=== PATIENT | female | born 1940 | race African-American/Black ===

== ENCOUNTER → 2016-09-13 | Outpatient (CLI) | payer MEDICARE | LOC: RAD 09:58 | PROVIDERS: ATTEND Internal Medicine | DX: M54.12 Radiculopathy, cervical region (principal) | CPT/HCPCS: 72141 ==

== ENCOUNTER → 2016-11-23 | Outpatient (CLI) | payer MEDICARE | LOC: WI 07:47 | PROVIDERS: ATTEND Specialist | DX: M79.604 Pain in right leg (principal); M25.551 Pain in right hip; M81.0 Age-related osteoporosis without current pathological fracture | CPT/HCPCS: 77080 ==

== ENCOUNTER → 2017-03-07 | Outpatient (CLI) | payer MEDICARE ==
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
== END ==
LOC: RAD 10:22
PROVIDERS: ATTEND Pain Medicine Interventional Pain Medicine
DX: M79.672 Pain in left foot (principal)
CPT/HCPCS: 78315; A9561; Q9969

== ENCOUNTER 2018-01-24 20:35 | Emergency (ER) | payer MEDICARE ==
[2018-01-24] MEDS ORDERED: HYDROCODONE/ACETAMINOPHEN 5-325 MG TABLET PO ONE (21:08)
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
--- NOTE | 2018-01-24 21:57 | RADIOLOGY REPORT (SQ) ---
EXAM DESCRIPTION: CT CHEST WITHOUT COMPLETED DATE/TIME: 01/24/2018 9:42 pm REASON FOR STUDY: fall with midback and R posterolater rib cage pain COMPARISON: 10/10/2015 TECHNIQUE: CT scan performed of the chest without intravenous contrast. Images reviewed with lung, soft tissue and bone windows. Reconstructed coronal and sagittal MPR images reviewed. All images st ored on PACS. All CT scanners at this facility use dose modulation, iterative reconstruction, and/or weight based d osing when appropriate to reduce radiation dose to as low as reasonably achievable (ALARA). [facility]: Dose Right [facility]: CareDose [facility]: Dose Right [facility]: Teradose 4D [facility]: [email or web address] RADIATION DOSE: CT Rad equipment meets quality standard of care and radiation dose reduction techniq ues were employed. CTDIvol: 14.4 mGy. DLP: 577 mGy-cm. mGy. LIMITATIONS: No technical limitations. FINDINGS: LUNGS AND PLEURA: No pneumothorax. Similar basilar parenchymal scarring -nodularity. No pleural effusions, calcifications. HILAR AND MEDIASTINAL STRUCTURES: No identified masses or abnormal nodes. No obvious aneurysm. HEART AND VASCULAR STRUCTURES: No aneurysm. Moderate pericardial effusion. UPPER ABDOMEN: No significant findings. Limited exam. THYROID AND OTHER SOFT TISSUES: Similar nodularity and postsurgical changes. . BONES: No acute finding. HARDWARE: None in the chest. OTHER: No other significant findings. IMPRESSION: Moderate pericardial effusion. No evidence for acute injury. TECHNICAL DOCUMENTATION: JOB ID: [id number] [place]-72 Quality ID # 436: Final reports with documentation of one or more dose reduction techniques (e.g., Au tomated exposure control, adjustment of the mA and/or kV according to patient size, use of iterative reconstruction technique) 2010 [employer]- All Rights Reserved Reading location - IP/workstation name: [email or web address]
--- NOTE | 2018-01-24 22:05 | RADIOLOGY REPORT (SQ) ---
EXAM DESCRIPTION: L SPINE WHOLE COMPLETED DATE/TIME: 01/24/2018 9:55 pm REASON FOR STUDY: fall with lower back pain COMPARISON: None. NUMBER OF VIEWS: Five views including obliques. TECHNIQUE: AP, lateral, oblique, and sacral radiographic images acquired of the lumbar spine. LIMITATIONS: None. FINDINGS: MINERALIZATION: Normal. SEGMENTATION: Normal. No transitional anatomy. ALIGNMENT: Normal. VERTEBRAE: Maintained height. No fracture or worrisome bone lesion. DISCS: Multilevel disc space narrowing with osteophytes. POSTERIOR ELEMENTS: Pedicles and facets are intact. No pars defect or posterior arch defects. Facet arthropathy is present. HARDWARE: None in the spine. PARASPINAL SOFT TISSUES: Normal. PELVIS: Intact as visualized. No fractures or worrisome bone lesions. SI joints intact. OTHER: No other significant finding. IMPRESSION: SPONDYLOSIS WITHOUT BONE LESION OR FRACTURE. TECHNICAL DOCUMENTATION: JOB ID: [id number] [place]-72 2010 [employer]- All Rights Reserved Reading location - IP/workstation name: [email or web address]
[2018-01-24] MEDS ORDERED: HYDROCODONE/ACETAMINOPHEN 5-325 MG (6 TAB/ER DISP) PO PRN (23:14)
[2018-01-25 00:19] VITALS: BP 175/94
== END 2018-01-25 | disposition home or self-care (01) ==
LOC: ER 20:35
DX: I31.3 Pericardial effusion (noninflammatory) (principal); S09.90XA Unspecified injury of head, initial encounter; S16.1XXA Strain of muscle, fascia and tendon at neck level, initial encounter; S39.012A Strain of muscle, fascia and tendon of lower back, initial encounter; M54.2 Cervicalgia; M54.9 Dorsalgia, unspecified; R51 Headache; Y04.8XXA Assault by other bodily force, initial encounter; I10 Essential (primary) hypertension; Z79.899 Other long term (current) drug therapy
CPT/HCPCS: 99284; 72110; 70450; 71250; 72125; A9270 ×2

== ENCOUNTER → 2018-02-17 | Outpatient (CLI) | payer MEDICARE ==
[2018-02-17 18:37] LABS: ALANINE AMINOTRANSFERASE 19 U/L (9-52); ALBUMIN 3.7 g/dL (3.5-5.0); ALKALINE PHOSPHATASE 96 U/L (38-126); ANION GAP 13 (5-19); ASPARTATE AMINO TRANSFERASE 22 U/L (14-36); BILIRUBIN,DIRECT 0.4 mg/dL (0.0-0.4); BILIRUBIN,TOTAL 0.6 mg/dL (0.2-1.3); BLOOD UREA NITROGEN 15 mg/dL (7-20); CALCIUM 9.6 mg/dL (8.4-10.2); CARBON DIOXIDE 31 mmol/L (22-30); CHLORIDE 103 mmol/L (98-107); GLUCOSE 100 mg/dL (75-110); POTASSIUM 3.4 mmol/L (3.6-5.0); SODIUM 146.5 mmol/L (137-145); TOTAL PROTEIN 7.3 g/dL (6.3-8.2)
== END ==
LOC: OD 17:28
PROVIDERS: ATTEND Internal Medicine Cardiovascular Disease
DX: E03.9 Hypothyroidism, unspecified (principal); I10 Essential (primary) hypertension; R53.83 Other fatigue; R06.02 Shortness of breath
CPT/HCPCS: 36415; 80053; 84443

== ENCOUNTER 2018-03-02 21:21 | Inpatient (IN) | payer MEDICARE ==
[2018-03-02] MEDS ORDERED: AMLODIPINE BESYLATE 5 MG TABLET PO ONE (22:09)
[2018-03-02] MEDS ORDERED: BENAZEPRIL HCL 10 MG TABLET PO ONE (22:09)
--- NOTE | 2018-03-02 22:12 | ER Document Report ---
ED General - General Chief Complaint: Shortness Of Breath Stated Complaint: DIFFICULTY BREATHING TRAVEL OUTSIDE OF THE [place] IN LAST 30 DAYS: No - HPI Notes: Patient is a 78-year-old female with a history of hypertension, CHF, obesity, A. fib who presents to the ED complaining of shortness of breath 4 days. Patient states her symptoms are worse when she lays flat and on occasion when she is ambulated. Patient states that she was seen this last week and was started on metoprolol as well as Eliquis. Patient states that she did not take her blood pressure medication this evening. She has not had any development of chest pain. She is eating and drinking without any difficulties. She is urinating normally and having normal bowel movements. Denies any drug allergies. Denies any headache, fever, neck pain, changes in vision/speech/ mentation/hearing, URI, sore throat, chest pain, palpitations, syncope, cough, abdominal pain, nausea/vomiting/diarrhea, urinary retention, dysuria, hematuria , back pain, loss of control of bowel or bladder, numbness/tingling, or rash. - Related Data Allergies/Adverse Reactions: No Known Allergies Allergy (Verified 09/29/14 08:13) Past Medical History - Social History Smoking Status: Never Smoker Chew tobacco use (# tins/day): No Frequency of alcohol use: None Drug Abuse: None Family History: Reviewed & Not Pertinent Patient has suicidal ideation: No Patient has homicidal ideation: No - Past Medical History Cardiac Medical History: Reports: Hx Congestive Heart Failure, Hx Hypercholesterolemia, Hx Hypertension - on meds Denies: Hx Atrial Fibrillation, Hx Coronary Artery Disease, Hx Heart Attack, Hx Peripheral Vascular Disease, Hx Heart Murmur Pulmonary Medical History: Denies: Hx Asthma, Hx Bronchitis, Hx COPD, Hx Pneumonia, Hx Tuberculosis Neurological Medical History: Denies: Hx Cerebrovascular Accident, Hx Seizures Endocrine Medical History: Reports: Hx Hyperthyroidism. Denies: Hx Graves' Disease Renal/ Medical History: Denies: Hx Peritoneal Dialysis GI Medical History: Denies: Hx Hepatitis, Hx Hiatal Hernia, Hx Ulcer Musculoskeltal Medical History: Reports Hx Arthritis - knees & ankles, Denies Hx Fibromyalgia, Denies Hx Muscular Dystrophy Traumatic Medical History: Denies: Hx Fractures Infectious Medical History: Denies: Hx Hepatitis Past Surgical History: Reports: Hx Mastectomy - double 2016, Hx Thyroid Surgery - removal of one, Hx Tubal Ligation. Denies: Hx Appendectomy, Hx Bowel Surgery , Hx Section, Hx Coronary Artery Bypass Graft, Hx Gastric Bypass Surgery, Hx Herniorrhaphy, Hx Hysterectomy, Hx Open Heart Surgery, Hx Pacemaker , Hx Tonsillectomy - Immunizations Hx Diphtheria, Pertussis, Tetanus Vaccination: Yes Review of Systems - Review of Systems -: Yes All other systems reviewed and negative Physical Exam - Vital signs Vitals: Temp Pulse Resp BP Pulse Ox 99.0 F 77 24 H 184/82 H 92 03/02/18 21:28 03/02/18 21:28 03/02/18 21:28 03/02/18 21:28 03/02/18 21:28 - Notes Notes: PHYSICAL EXAMINATION: GENERAL: Well-appearing, well-nourished and in no acute distress. Obese. HEAD: Atraumatic, normocephalic. EYES: Pupils equal round and reactive to light, extraocular movements intact, sclera anicteric, conjunctiva are normal. ENT: Nares patent and without discharge. oropharynx clear without exudates. No tonsilar hypertrophy or erythema. Moist mucous membranes. NECK: Normal range of motion, supple without lymphadenopathy LUNGS: decreased breath sounds b/l base. No retractions or labored breathing. HEART: IRR without murmurs, rubs, gallops. ABDOMEN: Soft, nontender, nondistended abdomen. No guarding, no rebound. No masses appreciated. Normal bowel sounds present. No CVA tenderness bilaterally. Musculoskeletal: FROM to passive/active. Strength 5+/5. Ayush neg b/l. Extremities: No cyanosis, clubbing, or edema b/l. Peripheral pulses 2+. Capillary refill less than 3 seconds. NEUROLOGICAL: Normal speech, normal gait. PSYCH: Normal mood, normal affect. SKIN: Warm, Dry, normal turgor, no rashes or lesions noted. Course - Re-evaluation Re-evalutation: 03/02/18 22:38 Pt started having tachypnea and wheezing after my evaluation. I immediately returned to the room and patient does appear to be in mild distress. BIPAP ordered. Reviewed CXR which shows new opacity, but believe this to clinically match CHF exacerbation rather than pneumonia. Reviewed this with Dr. Andino who is in agreement with plan. No need for duoneb , decadron, antibiotics at this time as her clinical picture favors CHF. We will also give lasix and start her on a nitro drip. 03/02/18 23:20 Recheck on patient. Pt is feeling "great" on the BIPAP and is no longer symptomatic per patient. 03/03/18 00:18 Patient is an afebrile, well-hydrated, 78-year-old female who presents to the ED with acute CHF exacerbation. Vitals are currently acceptable without any significant tachycardia, tachypnea, or hypoxia. Patient is on BiPAP and states that she is feeling much better. She is also on a nitro drip and was given Lasix. Troponin and EKG are unremarkable for acute pathology at this time. CBC and CMP are acceptable. BNP elevated. See chest x-ray result. Call was placed to her covering physician, Dr. Stephens, for Dr. Saini for admit. 03/03/18 00:37 Dr. Stephens accepted patient to [facility]. Pt/family in agreement. - Vital Signs Vital signs: Temp Pulse Resp BP Pulse Ox 99.0 F 77 29 H 179/86 H 99 03/02/18 21:28 03/02/18 21:28 03/02/18 23:13 03/02/18 22:15 03/02/18 23:13 - Laboratory Result Diagrams: 03/02/18 22:30 03/02/18 22:50 Laboratory results interpreted by me: 03/02/18 03/02/18 03/02/18 22:30 22:38 22:50 WBC 13.3 H RDW 15.1 H Lymphocytes % 11.4 L Absolute Neutrophils 9.9 H Absolute Monocytes 1.5 H Glucose 131 H AST 43 H ALT 56 H NT-Pro-B Natriuret Pep Urine Protein 30 H Urine Blood SMALL H Ur Leukocyte Esterase MODERATE H 03/02/18 22:50 WBC RDW Lymphocytes % Absolute Neutrophils Absolute Monocytes Glucose AST ALT NT-Pro-B Natriuret Pep 1720 H Urine Protein Urine Blood Ur Leukocyte Esterase Discharge - Discharge Clinical Impression: CHF exacerbation Qualifiers: Heart failure type: unspecified Qualified Code(s): I50.9 - Heart failure, unspecified Dyspnea Qualifiers: Dyspnea type: unspecified Qualified Code(s): R06.00 - Dyspnea, unspecified Condition: Stable Disposition: ADMITTED INPATIENT Admitting Provider: Angelo Unit Admitted: [facility]
--- NOTE | 2018-03-02 22:25 | RADIOLOGY REPORT (SQ) ---
EXAM DESCRIPTION: CHEST SINGLE VIEW COMPLETED DATE/TIME: 03/02/2018 10:13 pm REASON FOR STUDY: SOB COMPARISON: 01/24/2018 EXAM PARAMETERS: NUMBER OF VIEWS: One view. TECHNIQUE: Single frontal radiographic view of the chest acquired. RADIATION DOSE: NA LIMITATIONS: None. FINDINGS: LUNGS AND PLEURA: New hazy opacity in the left lung base obscuring the left hemidiaphragm. Right lung appears clear. MEDIASTINUM AND HILAR STRUCTURES: Stable. HEART AND VASCULAR STRUCTURES: Stable. BONES: No acute findings. HARDWARE: None in the chest. OTHER: No other significant finding. IMPRESSION: New hazy opacity in the left lung base obscuring the left hemidiaphragm. TECHNICAL DOCUMENTATION: JOB ID: [id number] [place]-72 2010 [employer]- All Rights Reserved Reading location - IP/workstation name: [email or web address]
[2018-03-02 22:38] LABS: ABSOLUTE BASOPHILS # (AUTO) 0.1 10^3/uL (0.0-0.2); ABSOLUTE EOSINOPHILS # (AUTO) 0.3 10^3/uL (0.0-0.6); ABSOLUTE LYMPHOCYTES (AUTO) 1.5 10^3/uL (0.5-4.7); ABSOLUTE MONOCYTES (AUTO) 1.5 10^3/uL (0.1-1.4); ABSOLUTE NEUT (AUTO) 9.9 10^3/uL (1.7-8.2); BASOPHILS % (AUTO) 0.8 % (0-2); EOSINOPHILS % (AUTO) 2.3 % (0-6); HEMATOCRIT 37.9 % (36.0-47.0); HEMOGLOBIN 12.6 g/dL (12.0-15.5); LYMPHOCYTES % (AUTO) 11.4 % (13-45); MEAN CORPUSCULAR HEMOGLOBIN 27.6 pg (27.0-33.4); MEAN CORPUSCULAR HGB CONC 33.3 g/dL (32.0-36.0); MEAN CORPUSCULAR VOLUME 83 fl (80-97); MONOCYTES % (AUTO) 10.9 % (3-13); PLATELET COUNT 281 10^3/uL (150-450); RED BLOOD COUNT 4.58 10^6/uL (3.72-5.28); RED CELL DISTRIBUTION WIDTH 15.1 % (11.5-14.0); SEGMENTED NEUTROPHILS % (AUTO) 74.6 % (42-78); TOTAL CELLS COUNTED % (AUTO) 100 %; WHITE BLOOD COUNT 13.3 10^3/uL (4.0-10.5)
[2018-03-02] MEDS ORDERED: IPRATROPIUM/ALBUTEROL 0.5-2.5 MG/3 ML AMPUL NEB ONE (22:38)
[2018-03-02] MEDS ORDERED: DEXAMETHASONE SOD PHOS INJ 10 MG/1 ML VIAL IV ONE (22:38)
[2018-03-02] MEDS ORDERED: NITROGLYCERIN/D5W 50 MG/250 ML RTUINJ IV PRN (22:43)
[2018-03-02] MEDS ORDERED: FUROSEMIDE INJ/PF 20 MG/2 ML SDV IV ONE (22:43)
[2018-03-02 23:39] LABS: ALANINE AMINOTRANSFERASE 56 U/L (9-52); ALBUMIN 3.7 g/dL (3.5-5.0); ALKALINE PHOSPHATASE 98 U/L (38-126); ANION GAP 10 (5-19); ASPARTATE AMINO TRANSFERASE 43 U/L (14-36); BILIRUBIN,DIRECT 0.4 mg/dL (0.0-0.4); BILIRUBIN,TOTAL 1.1 mg/dL (0.2-1.3); BLOOD UREA NITROGEN 12 mg/dL (7-20); CALCIUM 8.9 mg/dL (8.4-10.2); CARBON DIOXIDE 28 mmol/L (22-30); CHLORIDE 105 mmol/L (98-107); GLUCOSE 131 mg/dL (75-110); POTASSIUM 3.9 mmol/L (3.6-5.0); SODIUM 143.3 mmol/L (137-145); TOTAL PROTEIN 7.4 g/dL (6.3-8.2)
[2018-03-02 23:47] LABS: APPEARANCE,URINE CLEAR; BILIRUBIN,URINE NEGATIVE (NEGATIVE); COLOR,URINE YELLOW; GLUCOSE, URINE NEGATIVE (NEGATIVE); KETONES,URINE NEGATIVE (NEGATIVE); LEUKOCYTE ESTERASE,URINE MODERATE (NEGATIVE); NITRITE,URINE NEGATIVE (NEGATIVE); PROTEIN,URINE 30 mg/dL (NEGATIVE); UROBILINOGEN,URINE NEGATIVE mg/dL (<2.0)
[2018-03-03 00:02] LABS: TROPONIN I 0.019 ng/mL
--- NOTE | 2018-03-03 05:17 | EKG REPORT ---
SEVERITY:- ABNORMAL ECG - SINUS RHYTHM ABNORMAL T, CONSIDER ISCHEMIA, LATERAL LEADS : Confirmed by: Gregorio Huffman MD 03-Mar-2018 05:15:44
[2018-03-03] MEDS ORDERED: ENOXAPARIN SODIUM INJ 40 MG/0.4 ML DISP.SYRIN SUBCUT SCH (10:00)
[2018-03-03 12:13] LABS: HEMATOCRIT 34.3 % (36.0-47.0); HEMOGLOBIN 11.7 g/dL (12.0-15.5); MEAN CORPUSCULAR HEMOGLOBIN 27.8 pg (27.0-33.4); MEAN CORPUSCULAR HGB CONC 34.1 g/dL (32.0-36.0); MEAN CORPUSCULAR VOLUME 82 fl (80-97); PLATELET COUNT 217 10^3/uL (150-450); RED BLOOD COUNT 4.21 10^6/uL (3.72-5.28); RED CELL DISTRIBUTION WIDTH 15.2 % (11.5-14.0); WHITE BLOOD COUNT 9.9 10^3/uL (4.0-10.5)
[2018-03-03] MEDS: FUROSEMIDE INJ/PF 40 MG/4 ML SDV IV SCH ×2 (12:19→22:16)
[2018-03-03 12:44] LABS: INTERNATIONAL RATION (INR) 1.11; PROTHROMBIN TIME 14.9 SEC (11.4-15.4)
[2018-03-03] MEDS ORDERED: APIXABAN 5 MG TABLET PO ONE (13:00)
--- NOTE | 2018-03-03 14:52 | RADIOLOGY REPORT (SQ) ---
EXAM DESCRIPTION: CT CHEST WITH COMPLETED DATE/TIME: 03/03/2018 12:47 pm REASON FOR STUDY: SOB / LLL CONSOLIDATION COMPARISON: CT chest without contrast 01/24/2018 TECHNIQUE: CT scan of the chest performed using helical scanning technique with dynamic intravenous contrast injection. Images reviewed with lung, soft tissue and bone windows. Reconstructed coronal and sagittal MPR images reviewed. All images stored on PACS. All CT scanners at this facility use dose modulation, iterative reconstruction, and/or weight based d osing when appropriate to reduce radiation dose to as low as reasonably achievable (ALARA). [facility]: Dose Right [facility]: CareDose [facility]: Dose Right [facility]: Teradose 4D [facility]: Typekit CONTRAST TYPE AND DOSE: contrast/concentration: Isovue 370.00 mg/ml; Total Contrast Delivered: 80.0 ml; Total Saline Delivered: 55.0 ml RENAL FUNCTION: Creatinine 0.83 RADIATION DOSE: CT Rad equipment meets quality standard of care and radiation dose reduction techniq ues were employed. CTDIvol: 19.1 mGy. DLP: 685 mGy-cm. . LIMITATIONS: None. FINDINGS: LUNGS AND PLEURA: Trace bilateral pleural effusions are present right greater than left, n ew compared to 01/24/2018. There is airspace disease in the right and left posterior lung bases, likely atelectasis right greate r than left. This is also new compared to 01/24/2018. No pneumothorax. HILAR AND MEDIASTINAL STRUCTURES: No identified masses or abnormal nodes. HEART AND VASCULAR STRUCTURES: Trace pericardial effusion, smaller than on 01/24/2018. Mild cardiomega ly. No significant coronary calcifications. No thoracic aortic dissection. No gross central pulmon naomi emboli. HARDWARE: Surgical clips post right lobe thyroidectomy. UPPER ABDOMEN: Post cholecystectomy. THYROID AND OTHER SOFT TISSUES: Bilateral mastectomy BONES: No significant finding. OTHER: No other significant finding. IMPRESSION: Pericardial effusion is seen on 01/24/2018 has near completely resolved. Trace bilateral pleural effusions with bibasilar atelectasis right greater than left. TECHNICAL DOCUMENTATION: JOB ID: [id number] Quality ID # [id number]: Final reports with documentation of one or more dose reduction techniques (e.g., Au tomated exposure control, adjustment of the mA and/or kV according to patient size, use of iterative reconstruction technique) 2010 [employer]- All Rights Reserved Reading location - IP/workstation name: [email or web address] [email or web address]
[2018-03-03] MEDS: APIXABAN 5 MG TABLET PO SCH (17:26)
--- NOTE | 2018-03-03 18:57 | XCELERA REPORT ---
[address] [address] Transthoracic Echocardiogram Report Name: DESTINEE DICKSON Age: 78 yrs Gender: Female : 1940 Patient Status: Inpatient Patient Location: [address] [place] [address] Study Date: 03/03/2018 01:57 PM Procedure: A two-dimensional transthoracic echocardiogram with color flow Doppler was performed. The study was technically difficult with many images being suboptimal in quality. Reason For Study: Murmur / HTN / PAF History: Murmur / HTN / PAF. Ordering Physician: PRISCA RODRIGUEZ Performed By: Mildred Arguello Interpretation Summary The left ventricle is normal in size. There is mild concentric left ventricular hypertrophy. LV EF is > than 60% Left ventricular systolic function is normal. Doppler measurements suggest impaired left ventricular relaxation, which is associated with grade I/IV or mild diastolic dysfunction The left ventricular wall motion is normal. The right ventricle is not well visualized secondary to technical limitations The right atrium is normal. The left atrium is mildly dilated. There is no evidence of mitral valve prolapse. There is no mitral valve stenosis. There is a mild amount of mitral regurgitation There is no aortic valvular vegetation. There is no aortic valve stenosis There is no LVOT obstruction. No aortic regurgitation is present. There is no tricuspid stenosis. No tricuspid regurgitation. Unable to calculate RVSP due to insufficient TR jet. Small pericardial effusion. There are no echocardiographic or Doppler indications for cardiac tamponade MMode/2D Measurements & Calculations RVDd: 3.5 cm LVIDd: 4.2 cm FS: 28.3 % LVOT diam: 1.9 cm IVSd: 1.3 cm LVIDs: 3.0 cm EDV(Teich): 78.8 ml LVOT area: 2.7 cm2 LVPWd: 0.97 cm ESV(Teich): 35.4 ml EF(Teich): 55.1 % Doppler Measurements & Calculations MV E max maurizio: MV dec slope: Ao V2 max: LV V1 max P.6 cm/sec 716.4 cm/sec2 115.5 cm/sec 3.6 mmHg MV A max maurizio: MV dec time: Ao max PG: LV V1 max: 49.4 cm/sec 0.17 sec 5.3 mmHg 94.4 cm/sec MV E/A: 2.4 CLAUS(V,D): 2.2 cm2 PA V2 max: 126.8 cm/sec PA max P.4 mmHg Left Ventricle The left ventricle is normal in size. There is mild concentric left ventricular hypertrophy. LV EF is > than 60%. Left ventricular systolic function is normal. Doppler measurements suggest impaired left ventricular relaxation, which is associated with grade I/IV or mild diastolic dysfunction. The left ventricular wall motion is normal. There is no thrombus. Right Ventricle The right ventricle is not well visualized secondary to technical limitations. Atria The right atrium is normal. The left atrium is mildly dilated. Mitral Valve There is no evidence of mitral valve prolapse. There is no vegetation seen on the mitral valve. There is no mitral valve stenosis. There is a mild amount of mitral regurgitation. Aortic Valve There is no aortic valvular vegetation. There is no aortic valve stenosis. There is no LVOT obstruction. No aortic regurgitation is present. Tricuspid Valve There is no tricuspid stenosis. No tricuspid regurgitation. Unable to calculate RVSP due to insufficient TR jet. Pulmonic Valve There is no pulmonic valvular stenosis. There is no pulmonic valvular regurgitation. Great Vessels The aortic root is not well visualized. Effusions Small pericardial effusion. There are no echocardiographic or Doppler indications for cardiac tamponade. : PRISCA RODRIGUEZ > Prisca Rodriguez
[2018-03-03] MEDS ORDERED: WARFARIN SODIUM 5 MG TABLET PO SCH (22:00)
[2018-03-03] MEDS ORDERED: METOPROLOL SUCCINATE 50 MG TAB.SR.24H PO SCH (22:00)
--- NOTE | 2018-03-03 22:29 | PDOC H&P ---
History of Present Illness Admission Date/PCP: 03/03/18 00:42 SAMIA MAYO MD History of Present Illness: DESTINEE DICKSON is a 78 year old female.She came to the emergency room this morning for evaluation of shortness of breath for the last 4 days. She was evaluated in the emergency room a chest x-ray was done that demonstrated new opacity in the emergency room she was also wheezing on auscultation by the emergency room physicians it was felt that patient was in CHF the BNP was elevated, she was supported with noninvasive positive pressure ventilation BiPAP in the emergency room when she was in respiratory distress she was also found to have elevated blood pressure in the emergency room, she was started on nitroglycerin infusion for the control of blood pressure.2D echocardiogram was done this morning, it demonstrated normal ejection fraction of left ventricle, there was Doppler evidence of mild diastolic dysfunction of left ventricle, grade 1 the right ventricle systolic pressure could not be measured because of minimal tricuspid valve regurgitation jet envelope CT chest with contrast was done as well this morning, it demonstrated trace bilateral pleural effusion right more than left which was new when compared to 01/24/2018 that was also he has space disease in the right and left posterior lung bases likely atelectasis there is no overt CHF on the CT chest Past Medical History Cardiac Medical History: Reports: Atrial Fibrillation, Hypertension Endocrine Medical History: Reports: Hyperthyroidism Malignancy Medical History: Reports: Breast Cancer Musculoskeltal Medical History: Reports: Arthritis - knees & ankles Past Surgical History Past Surgical History: Reports: Mastectomy - double 2016, Tubal Ligation Social History Smoking Status: Former Smoker Last Time Smoked: "50 years ago" Frequency of Alcohol Use: None Hx Recreational Drug Use: No Drugs: None Hx Prescription Drug Abuse: No - Advance Directive Resuscitation Status: Full Code Family History Family History: Reviewed & Not Pertinent Parental Family History Reviewed: Yes Children Family History Reviewed: Yes Sibling(s) Family History Reviewed.: Yes Medication/Allergy Home Medications: RX: Ergocalciferol (Vitamin D2) [Drisdol 50,000 unit (1.25MG) Capsule] 50,000 unit PO MO@1000 03/03/18 RX: Latanoprost [Xalatan 0.005% Oph Soln 2.5 ml] 1 drop OU QHS 03/03/18 RX: Acetaminophen [Tylenol 325 mg Tablet] 650 mg PO Q4HP PRN tablet 03/07/18 RX: Apixaban [Eliquis 5 mg Tablet] 5 mg PO Q12 #60 tablet 03/07/18 RX: Levothyroxine Sodium [Synthroid 0.075 mg Tablet] 0.075 mg PO Q6AM #90 tablet 03/07/18 RX: Lisinopril/Hydrochlorothiazide [Zestoretic 20-12.5 mg Tablet] 1 tab PO DAILY #90 03/07/18 RX: Verapamil HCl [Calan Sr 180 mg Tablet.sa] 180 mg PO Q12 #60 tablet.sa Allergies/Adverse Reactions: No Known Allergies Allergy (Verified 09/29/14 08:13) Review of Systems Constitutional: ABSENT: chills, fever(s), headache(s), weight gain, weight loss Eyes: ABSENT: visual disturbances Ears: ABSENT: hearing changes Cardiovascular: ABSENT: chest pain, dyspnea on exertion, edema, orthropnea, palpitations Respiratory: PRESENT: dyspnea Gastrointestinal: ABSENT: abdominal pain, constipation, diarrhea, hematemesis, hematochezia, nausea, vomiting Genitourinary: ABSENT: dysuria, hematuria Musculoskeletal: ABSENT: joint swelling Integumentary: ABSENT: rash, wounds Neurological: ABSENT: abnormal gait, abnormal speech, confusion, dizziness, focal weakness, syncope Psychiatric: ABSENT: anxiety, depression, homidical ideation, suicidal ideation Endocrine: ABSENT: cold intolerance, heat intolerance, menstrual abnormalities, polydipsia, polyuria Hematologic/Lymphatic: ABSENT: easy bleeding, easy bruising, lymphadenopathy Physical Exam Vital Signs: Temp Pulse Resp BP Pulse Ox 98.7 F 96 20 148/86 H 99 03/03/18 19:43 03/03/18 19:43 03/03/18 19:43 03/03/18 19:43 03/03/18 19:43 Intake & Output 03/02/18 03/03/18 03/04/18 06:59 06:59 06:59 Intake Total 12 1170 Output Total 500 Balance 12 670 Weight 103.3 kg General appearance: PRESENT: no acute distress, well-developed, well-nourished Head exam: PRESENT: atraumatic, normocephalic Eye exam: PRESENT: conjunctiva pink, EOMI, PERRLA Ear exam: PRESENT: normal external ear exam Mouth exam: PRESENT: moist, tongue midline Neck exam: PRESENT: full ROM Respiratory exam: PRESENT: wheezes Cardiovascular exam: PRESENT: RRR, +S1, +S2 Pulses: PRESENT: normal dorsalis pedis pul, +2 pedal pulses bilateral Vascular exam: PRESENT: normal capillary refill GI/Abdominal exam: PRESENT: normal bowel sounds, soft Rectal exam: PRESENT: deferred Neurological exam: PRESENT: alert, awake, oriented to person, oriented to place , oriented to time, oriented to situation, CN II-XII grossly intact Psychiatric exam: PRESENT: appropriate affect, normal mood Skin exam: PRESENT: dry, intact, warm Results Laboratory Results: 03/03/18 04:55 03/03/18 04:55 WBC 9.9 RBC 4.21 Hgb 11.7 L Hct 34.3 L MCV 82 MCH 27.8 MCHC 34.1 RDW 15.2 H Plt Count 217 03/03/18 03/03/18 03/03/18 04:55 04:55 11:36 Creatine Kinase 61 54 Troponin I 0.016 03/03/18 03/03/18 03/03/18 11:36 17:30 17:30 Creatine Kinase 67 Troponin I 0.012 < 0.012 Impressions: Chest X-Ray 03/02/18 22:00 IMPRESSION: New hazy opacity in the left lung base obscuring the left hemidiaphragm. Chest CT 03/03/18 00:00 IMPRESSION: Pericardial effusion is seen on 01/24/2018 has near completely resolved. Trace bilateral pleural effusions with bibasilar atelectasis right greater than left. Assessment & Plan - Diagnosis (1) Shortness of breath Is this a current diagnosis for this admission?: Yes Plan: The exact etiology of the shortness of breath is not clear, it does not seems to be CHF, she has preserved systolic function of left ventricle, she has mild diastolic dysfunction of left ventricle though BNP is elevated questionable flash pulmonary edema, could she have renal artery stensosis, remote history of smoking, could this be beginning of obstructive lung disease, we will request spirometry
[2018-03-03] MEDS ORDERED: LATANOPROST 0.005% OPH SOLN 2.5 ML OU ONE (23:00)
[2018-03-03] MEDS ORDERED: HYDROCHLOROTHIAZIDE 12.5 MG TABLET PO ONE (23:00)
[2018-03-03] MEDS ORDERED: LISINOPRIL 10 MG TABLET PO ONE (23:00)
[2018-03-03] MEDS ORDERED: HYDROCHLOROTHIAZIDE 25 MG TABLET PO ONE (23:15)
[2018-03-04 04:55] LABS: ABSOLUTE BASOPHILS # (AUTO) 0.1 10^3/uL (0.0-0.2); ABSOLUTE EOSINOPHILS # (AUTO) 0.4 10^3/uL (0.0-0.6); ABSOLUTE LYMPHOCYTES (AUTO) 1.8 10^3/uL (0.5-4.7); ABSOLUTE NEUT (AUTO) 4.5 10^3/uL (1.7-8.2); BASOPHILS % (AUTO) 0.8 % (0-2); EOSINOPHILS % (AUTO) 4.7 % (0-6); HEMATOCRIT 39.2 % (36.0-47.0); HEMOGLOBIN 13.3 g/dL (12.0-15.5); MEAN CORPUSCULAR HEMOGLOBIN 27.9 pg (27.0-33.4); MEAN CORPUSCULAR VOLUME 82 fl (80-97); MONOCYTES % (AUTO) 12.5 % (3-13); PLATELET COUNT 259 10^3/uL (150-450); RED BLOOD COUNT 4.78 10^6/uL (3.72-5.28); TOTAL CELLS COUNTED % (AUTO) 100 %; WHITE BLOOD COUNT 7.7 10^3/uL (4.0-10.5)
[2018-03-04 05:02] LABS: ANION GAP 10 (5-19); BLOOD UREA NITROGEN 19 mg/dL (7-20); CARBON DIOXIDE 37 mmol/L (22-30); CHLORIDE 97 mmol/L (98-107); GLUCOSE 113 mg/dL (75-110); POTASSIUM 3.1 mmol/L (3.6-5.0); SODIUM 144.1 mmol/L (137-145)
[2018-03-04] MEDS: LEVOTHYROXINE SODIUM 0.075 MG TABLET PO SCH (05:03)
[2018-03-04 05:23] LABS: FREE T4 (FREE THYROXINE) 1.29 ng/dL (0.78-2.19)
[2018-03-04 05:35] LABS: ERYTHROCYTE SEDIMENTATION RATE 45 mm/hr (0-30)
[2018-03-04 05:37] LABS: THYROID STIMULATING HORMONE 2.83 uIU/mL (0.47-4.68)
[2018-03-04] MEDS: LISINOPRIL 10 MG TABLET PO SCH (09:57)
[2018-03-04] MEDS: AMLODIPINE BESYLATE 10 MG TABLET PO SCH (09:58)
[2018-03-04] MEDS: HYDROCHLOROTHIAZIDE 25 MG TABLET PO SCH (09:58)
[2018-03-04] MEDS: METOPROLOL SUCCINATE 50 MG TAB.SR.24H PO SCH (09:59)
[2018-03-04] MEDS: APIXABAN 5 MG TABLET PO SCH ×2 (10:00→17:36)
[2018-03-04] MEDS ORDERED: APIXABAN 5 MG TABLET PO SCH (10:00)
[2018-03-04] MEDS ORDERED: FUROSEMIDE INJ/PF 40 MG/4 ML SDV IV SCH (10:00)
[2018-03-04] MEDS ORDERED: ACETAMINOPHEN 325 MG TABLET PO PRN (10:15)
[2018-03-04] MEDS: LATANOPROST 0.005% OPH SOLN 2.5 ML OU SCH (21:26)
[2018-03-04] MEDS ORDERED: ALBUTEROL SULFATE 0.042% NEB (1.25 MG/3 ML) AMPUL NEB PRN (21:29)
--- NOTE | 2018-03-04 21:30 | PDOC PROGRESS REPORT ---
Subjective Progress Note for:: 03/04/18 Subjective:: Patient was seen by the bedside, there is no new complaint Reason For Visit: HEART FAILURE Physical Exam Vital Signs: Temp Pulse Resp BP Pulse Ox 99.2 F 99 20 119/64 98 03/04/18 19:32 03/04/18 19:32 03/04/18 19:32 03/04/18 19:32 03/04/18 19:32 Intake & Output 03/03/18 03/04/18 03/05/18 06:59 06:59 06:59 Intake Total 12 1198 1570 Output Total 1550 200 Balance 12 -352 1370 Weight 103.3 kg 95.2 kg General appearance: PRESENT: no acute distress Respiratory exam: PRESENT: rhonchi Cardiovascular exam: PRESENT: +S1, +S2 GI/Abdominal exam: PRESENT: soft Neurological exam: PRESENT: alert Results Laboratory Results: 03/04/18 04:33 03/04/18 04:33 03/04/18 03/04/18 03/04/18 04:33 04:33 04:33 WBC 7.7 RBC 4.78 Hgb 13.3 Hct 39.2 MCV 82 MCH 27.9 MCHC 34.0 RDW 15.0 H Plt Count 259 Seg Neutrophils % 59.0 Lymphocytes % 23.0 Monocytes % 12.5 Eosinophils % 4.7 Basophils % 0.8 Absolute Neutrophils 4.5 Absolute Lymphocytes 1.8 Absolute Monocytes 1.0 Absolute Eosinophils 0.4 Absolute Basophils 0.1 Sodium 144.1 Potassium 3.1 L Chloride 97 L Carbon Dioxide 37 H Anion Gap 10 BUN 19 Creatinine 0.95 Est GFR ( Amer) > 60 Est GFR (Non-Af Amer) 57 L Glucose 113 H Calcium 9.0 TSH 2.83 Free T4 1.29 Free T3 pg/mL 03/03/18 03/03/18 03/03/18 04:55 04:55 11:36 Creatine Kinase 61 54 Troponin I 0.016 NT-Pro-B Natriuret Pep 03/03/18 03/03/18 03/03/18 11:36 17:30 17:30 Creatine Kinase 67 Troponin I 0.012 < 0.012 NT-Pro-B Natriuret Pep 03/04/18 04:33 Creatine Kinase Troponin I NT-Pro-B Natriuret Pep 1530 H Impressions: Chest X-Ray 03/02/18 22:00 IMPRESSION: New hazy opacity in the left lung base obscuring the left hemidiaphragm. Chest CT 03/03/18 00:00 IMPRESSION: Pericardial effusion is seen on 01/24/2018 has near completely resolved. Trace bilateral pleural effusions with bibasilar atelectasis right greater than left. Assessment & Plan - Diagnosis (1) Shortness of breath Is this a current diagnosis for this admission?: Yes
--- NOTE | 2018-03-04 21:41 | PROGRESS NOTE E ---
Progress Note NAME: DESTINEE DICKSON : 1940 AGE: 78Y DATE: 03/04/2018 ROOM: 323 SUBJECTIVE: The patient states she has no chest pain or discomfort. There is no wheezing. There is no PND, orthopnea or shortness of breath but she says she is on a BiPAP because it was placed on her. She denies any chest pain or discomfort. There is no leg edema. There are no palpitations. There is no recurrence of atrial fibrillation. There is no *------* arrhythmia seen. OBJECTIVE: GENERAL: On examination, the patient is moderately obese in no acute distress. She is well groomed. VITAL SIGNS: She is afebrile with a temperature of 98.8 degrees Fahrenheit, her pulse is 83 beats per minute, blood pressure 120/67, respirations are 16 per minute, O2 saturations are 98% on a BiPAP with FiO2 of 30%. HEENT: Head is atraumatic, normocephalic. Eyes: Pupils are equal, round, regular, reactive to light and accommodation. Extraocular movements are normal. There is no conjunctival pallor. There is no scleral icterus. ENT is negative. NECK: Supple. There is no JVD. Carotids are equal. There is no bruit. There is no lymphadenopathy. There is no goiter. Trachea central. LUNGS: At present are clear to auscultation and percussion without any wheezing, rales or rhonchi. There is no chest wall tenderness. HEART: S1 and S2 are heard. There is no S3 gallop. There is no S4 gallop. There is a systolic murmur in the left sternal border on the apex. There is no rub. ABDOMEN: Soft without any hepatosplenomegaly. Bowel sounds are well heard. There are no tender areas or masses. There is no rebound, guarding or rigidity. EXTREMITIES: Femorals are slightly diminished. There are no femoral bruits. Leg pulses are diminished. There is no pedal edema. There is no DVT or cellulitis. There is no cyanosis or clubbing. There is no calf tenderness. CENTRAL NERVOUS SYSTEM: The patient is awake, alert, oriented x3 with no focal deficit. PSYCHIATRIC: The patient's judgment and insight are intact. Her affect is normal. LABORATORY DATA: The patient's white count is 7700; her hemoglobin is 13.3; hematocrit is 39.2; and the platelet count is 259,000. Her ESR rate is 45 which is elevated. The patient's sodium is 144.1, potassium 3.1, chloride is 97, CO2 is 37; the patient's BUN is 19, creatinine 0.95, GFR is greater than 60, and her calcium is 9.0. Her NT-proBNP is 1530. Her TSH is 2.83, her free T4 is 1.29. IMPRESSION: 1. SHORTNESS OF BREATH WITH WHEEZING, ? NEW ONSET ASTHMA. Note that the patient states when she takes her Toprol, she does not have the wheezing related to the taking of Toprol. VERSUS REACTIVE AIRWAY DISEASE SECONDARY TO BETA ANN WHICH SEEMS UNLIKELY. ALSO, THE PATIENT'S ESR IS ELEVATED. ? ETIOLOGY. We will get a collagen vascular disease workup. 2. HYPOKALEMIA. We will replace the patient's potassium. 3. ORTHOPNEA, ? ETIOLOGY. 4. SMALL PERICARDIAL EFFUSION, ETIOLOGY TO BE DETERMINED. We will get a collagen vascular disease workup since the ESR is slightly up, we will get RA factor, SOFYA, double-stranded DNA, and complement levels. 5. PAROXYSMAL ATRIAL FIBRILLATION, AT PRESENT IN SINUS RHYTHM. 6. HISTORY OF BREAST CANCER, CURED PER PATIENT. 7. HYPOTHYROIDISM. We will continue the patient on Synthroid. The patient's T4 levels and TSH levels are normal. 8. OBESITY. 9. ABNORMAL EKG WITH NO EVIDENCE OF MYOCARDIAL INFARCTION IN VIEW OF THE NORMAL TROPONIN AND CK-MB LEVELS. 10. CLINICALLY AND BY CHEST X-RAY AND CT OF THE CHEST, NO EVIDENCE OF CONGESTIVE HEART FAILURE. RECOMMENDATION: 1. Her medications have been reviewed. 2. Her potassium has been replaced. 3. The low potassium level may be related to her Lasix which will be converted to p.o. Lasix. 4. Later, would recommend that the patient have a 30-day event monitor to see if there is any recurrence of atrial fibrillation. 5. Would also recommend that the patient have outpatient sleep study, although she claims no symptoms of sleep apnea, in view of the patient's obesity. 6. Also would recommend getting an IV Lexiscan Cardiolite stress test in view of the patient's risk factors for coronary artery disease. Medical decision making is of high complexity in view of so many unanswered clinical morbidities existing together. CODE STATUS: The patient is a FULL CODE. Her daughter is the surrogate healthcare decision maker. Discussed with the attending physician on the case. We will follow with you. DICTATING PHYSICIAN: BETZY RODRIGUEZ M.D. [id number] PHY#: [id number] ID: [id number] JOB#: [id number] ACCT: [id number] cc: >
[2018-03-04] MEDS ORDERED: POTASSIUM CHLORIDE 10 MEQ CAPSULE.ER PO ONE (22:00)
[2018-03-05] MEDS: LEVOTHYROXINE SODIUM 0.075 MG TABLET PO SCH (05:59)
[2018-03-05 06:20] LABS: ABSOLUTE BASOPHILS # (AUTO) 0.1 10^3/uL (0.0-0.2); ABSOLUTE EOSINOPHILS # (AUTO) 0.5 10^3/uL (0.0-0.6); ABSOLUTE MONOCYTES (AUTO) 1.1 10^3/uL (0.1-1.4); ABSOLUTE NEUT (AUTO) 5.1 10^3/uL (1.7-8.2); EOSINOPHILS % (AUTO) 5.3 % (0-6); HEMATOCRIT 41.1 % (36.0-47.0); HEMOGLOBIN 13.9 g/dL (12.0-15.5); LYMPHOCYTES % (AUTO) 22.6 % (13-45); MEAN CORPUSCULAR HEMOGLOBIN 27.7 pg (27.0-33.4); MEAN CORPUSCULAR HGB CONC 33.8 g/dL (32.0-36.0); MEAN CORPUSCULAR VOLUME 82 fl (80-97); MONOCYTES % (AUTO) 12.3 % (3-13); PLATELET COUNT 271 10^3/uL (150-450); RED BLOOD COUNT 5.01 10^6/uL (3.72-5.28); RED CELL DISTRIBUTION WIDTH 15.3 % (11.5-14.0); SEGMENTED NEUTROPHILS % (AUTO) 58.8 % (42-78); TOTAL CELLS COUNTED % (AUTO) 100 %; WHITE BLOOD COUNT 8.6 10^3/uL (4.0-10.5)
[2018-03-05 06:30] LABS: INTERNATIONAL RATION (INR) 1.26; PROTHROMBIN TIME 16.4 SEC (11.4-15.4)
[2018-03-05 07:24] LABS: ANION GAP 12 (5-19); BLOOD UREA NITROGEN 28 mg/dL (7-20); CALCIUM 9.1 mg/dL (8.4-10.2); CARBON DIOXIDE 35 mmol/L (22-30); CHLORIDE 95 mmol/L (98-107); GLUCOSE 95 mg/dL (75-110); POTASSIUM 3.9 mmol/L (3.6-5.0); SODIUM 142.2 mmol/L (137-145)
[2018-03-05] MEDS ORDERED: FUROSEMIDE 20 MG TABLET PO SCH (10:00)
[2018-03-05] MEDS: LISINOPRIL 10 MG TABLET PO SCH (11:12)
[2018-03-05] MEDS: APIXABAN 5 MG TABLET PO SCH ×2 (11:13→18:09)
[2018-03-05] MEDS: HYDROCHLOROTHIAZIDE 25 MG TABLET PO SCH (11:14)
[2018-03-05] MEDS: AMLODIPINE BESYLATE 10 MG TABLET PO SCH (11:14)
[2018-03-05] MEDS: METOPROLOL SUCCINATE 50 MG TAB.SR.24H PO SCH (11:14)
[2018-03-05] MEDS ORDERED: VERAPAMIL HCL INJ/PF 5 MG/2 ML SDV IV ONE (13:15)
--- NOTE | 2018-03-05 15:41 | Pulmonary Function Test ---
Pulmonary Function Test Date of Procedure:: 03/05/18 INDICATION:: Dyspnea Referring Provider: Dr. Saini - Report Spirometry: FVC 1.75 L 63% postbronchodilator 1.56 L 57% FEV1 1.30 L 66% postbronchodilator 1.30 L 66% FEV1/FVC % 74 postbronchodilator 83 predicted 75 FEF 25-75% 1.64 L 104% postbronchodilator 2.22 L 141% Impression: Mild obstructive ventilatory defect with insignificant response to bronchodilator therapy. This in and of itself does not preclude a clinical trial of bronchodilator therapy. Restrictive defect is implied but cannot be diagnosed on the basis of spirometry alone. (Restrictive defects may mask the degree of obstruction) if clinically indicated complete pulmonary function tests would be warranted.
[2018-03-05 20:33] LABS: APPEARANCE,URINE SLIGHTLY-CLOUDY; BILIRUBIN,URINE NEGATIVE (NEGATIVE); COLOR,URINE YELLOW; GLUCOSE, URINE NEGATIVE (NEGATIVE); KETONES,URINE NEGATIVE (NEGATIVE); LEUKOCYTE ESTERASE,URINE MODERATE (NEGATIVE); NITRITE,URINE NEGATIVE (NEGATIVE); PROTEIN,URINE NEGATIVE (NEGATIVE); URINE SPECIFIC GRAVITY 1.014; UROBILINOGEN,URINE NEGATIVE mg/dL (<2.0)
--- NOTE | 2018-03-05 20:35 | PDOC PROGRESS REPORT ---
Subjective Progress Note for:: 03/05/18 Subjective:: Patient seen by the bedside, spirometry was done, it showed mild obstructive defect with significant response to bronchodilator therapy restrictive defect was implied, consultation is requested from pulmonary, she is scheduled for stress test in the morning, remote history of smoking Reason For Visit: HEART FAILURE Physical Exam Vital Signs: Temp Pulse Resp BP Pulse Ox 98.3 F 68 21 H 116/60 95 03/05/18 19:19 03/05/18 19:19 03/05/18 19:19 03/05/18 19:19 03/05/18 20:14 Intake & Output 03/04/18 03/05/18 03/06/18 06:59 06:59 06:59 Intake Total 1198 1894 1075 Output Total 1550 700 250 Balance -352 1194 825 Weight 95.2 kg General appearance: PRESENT: mild distress Eye exam: PRESENT: PERRLA Respiratory exam: PRESENT: prolonged expiratory phas Cardiovascular exam: PRESENT: +S1, +S2 GI/Abdominal exam: PRESENT: soft Neurological exam: PRESENT: alert Results Laboratory Results: 03/05/18 05:59 03/05/18 05:59 03/05/18 03/05/18 05:59 05:59 WBC 8.6 RBC 5.01 Hgb 13.9 Hct 41.1 MCV 82 MCH 27.7 MCHC 33.8 RDW 15.3 H Plt Count 271 Seg Neutrophils % 58.8 Lymphocytes % 22.6 Monocytes % 12.3 Eosinophils % 5.3 Basophils % 1.0 Absolute Neutrophils 5.1 Absolute Lymphocytes 2.0 Absolute Monocytes 1.1 Absolute Eosinophils 0.5 Absolute Basophils 0.1 Sodium 142.2 Potassium 3.9 Chloride 95 L Carbon Dioxide 35 H Anion Gap 12 BUN 28 H Creatinine 1.11 Est GFR ( Amer) 58 L Est GFR (Non-Af Amer) 48 L Glucose 95 Calcium 9.1 Magnesium 1.8 03/03/18 03/03/18 03/03/18 04:55 04:55 11:36 Creatine Kinase 61 54 Troponin I 0.016 NT-Pro-B Natriuret Pep 03/03/18 03/03/18 03/03/18 11:36 17:30 17:30 Creatine Kinase 67 Troponin I 0.012 < 0.012 NT-Pro-B Natriuret Pep 03/04/18 04:33 Creatine Kinase Troponin I NT-Pro-B Natriuret Pep 1530 H Impressions: Chest X-Ray 03/02/18 22:00 IMPRESSION: New hazy opacity in the left lung base obscuring the left hemidiaphragm. Chest CT 03/03/18 00:00 IMPRESSION: Pericardial effusion is seen on 01/24/2018 has near completely resolved. Trace bilateral pleural effusions with bibasilar atelectasis right greater than left. Assessment & Plan - Diagnosis (1) Shortness of breath Is this a current diagnosis for this admission?: Yes Plan: She probably of obstructive lung disease, remote history of smoking, patient to be started on trelogy , full PFT ordered
[2018-03-05] MEDS ORDERED: ALBUTEROL SULFATE 0.042% NEB (1.25 MG/3 ML) AMPUL NEB PRN (20:36)
--- NOTE | 2018-03-05 21:40 | CONSULTATION REPORT E ---
Consultation Report NAME: DESTINEE DICKSON : 1940 AGE: 78Y DATE: 03/05/2018 ROOM: 323 A TO: CHIDI NAM M.D. FROM: SAMIA MAYO M.D. Requesting Physician HISTORY OF PRESENT ILLNESS: The patient is a 78-year-old -Italian female who is morbidly obese and admitted on 03/03/2018 for shortness of breath and chest tightness. The patient went to the emergency room and was found to have severe poorly controlled hypertension, pulmonary edema, and the patient was placed on BiPAP, seemed to improve. Consulted because of wheezing and some possible noncardiac causes of shortness of breath. The patient claimed that she was never diagnosed of asthma before. Smokes about a few cigarettes a day for a few years more than 50 years ago. Denies any fever, chills, increased coughing, purulent sputum production, or hemoptysis. The patient is currently feeling better. No nausea, vomiting, diarrhea. PAST MEDICAL HISTORY: Includes congestive heart failure, hyperlipidemia, hypertension. SURGICAL HISTORY: Mastectomy and tubal ligation. SOCIAL HISTORY: Denies any illicit drug use. Denies any alcohol abuse. Smoked about 50 years ago but about 1 or 2 cigarettes a day for a few years. FAMILY HISTORY: Reviewed but not pertinent. HOME MEDICATIONS: 1. Norvasc. 2. Eliquis. 3. Vitamin D. 4. Xalatan. 5. Synthroid. 6. Lisinopril/hydrochlorothiazide. 7. Metoprolol. ALLERGIES: No known drug allergies. REVIEW OF SYSTEMS: CONSTITUTIONAL: No fever or chills. EYES: No jaundice or pallor or eye pain. EARS, NOSE, AND THROAT: No ear discharge noted or nasal discharge. HEAD AND NECK: No neck pain and or head trauma. CHEST AND RESPIRATORY: Complained about increased shortness of breath, chest tightness, and some wheezing. CARDIAC: History of congestive heart failure and hypertension. ABDOMEN: No nausea, vomiting, or diarrhea. GENITOURINARY: No dysuria or hematuria. EXTREMITIES: Plus 1 bipedal edema. PHYSICAL EXAMINATION: GENERAL: The patient appeared awake, coherent, oriented x3. Not in apparent respiratory distress. VITAL SIGNS: Temperature of 98.9 with a T-max of 99.2, blood pressure is 103/53, heart rate of 76, respiratory rate is 16, saturation is 94% at room air. EYES: No jaundice or pallor. EARS, NOSE, AND THROAT: No ear drainage noted. No nasal discharge. HEAD AND NECK: No scalp swelling, tenderness. Neck supple. CHEST AND LUNGS: No wheezing, no rhonchi, no coarse crackles. CARDIOVASCULAR: S1 is distinct. Normal rate and regular rhythm. ABDOMEN: Flabby, positive bowel sounds, soft, nondistended, nontender. EXTREMITIES: No joint swelling, no cellulitis. LABORATORY DATA: CBC today showed a white count of 8.6, hemoglobin 13.9, hematocrit 41.1, platelet count is 271. ESR is 45. Chemistry showed sodium of 142, potassium 3.9, chloride 95, CO2 is 35, BUN is 28, creatinine is 1.1 increased from 0.95 a few days ago. NT-BNP is 1530. TSH is 2.83 and free T4 is 1.29. IMAGING STUDIES: Chest CT scan done on 03/03/2018 showed pulmonary edema bilaterally, atelectasis right lung base, and pleural effusion right side greater than the left but small. ASSESSMENT: 1. Pulmonary edema/congestive heart failure with bilateral small pleural effusions. 2. Poorly controlled hypertension. 3. Bronchial asthma cannot be completely excluded. PFT today did not show any obstructive airway defect or significant bronchodilator response. The patient had ventilatory impairment. Reduced FEV-1/FVC, most likely due to pulmonary edema, pleural effusion, and morbid obesity. Patient claims relief and symptom improvement following nebulizer treatment. PLAN/RECOMMENDATION: 1. We will start the patient on Advair 250 one puff b.i.d. 2. May continue the nebulizer treatment, albuterol 2.5 mcg every 6 hours as needed. 3. Oxygen therapy to titrate. 4. Optimize CHF therapy. 5. Optimize blood pressure control. 6. Recommend pulmonary clinic follow up upon hospital discharge. DICTATING PHYSICIAN: CHIDI NAM MD,DINA,MPH [id number] PHY#: [id number] ID: [id number] JOB#: [id number] ACCT: [id number] cc:CHIDI NAM M.D. > [facility]
--- NOTE | 2018-03-05 21:49 | EKG REPORT ---
SEVERITY:- ABNORMAL ECG - PROBABLE LVH WITH SECONDARY REPOL ABNRM BORDERLINE PROLONGED QT INTERVAL PAT WITH BLOCK : Confirmed by: Prisca Houser MD 05-Mar-2018 21:49:01
--- NOTE | 2018-03-05 21:50 | EKG REPORT ---
SEVERITY:- ABNORMAL ECG - ATRIAL FLUTTER, A-RATE VERSUS PAT WITH BLOCK PROBABLE LVH WITH SECONDARY REPOL ABNRM : Confirmed by: Prisca Houser MD 05-Mar-2018 21:49:40
[2018-03-05] MEDS: FLUTICASONE/SALMETEROL DISKUS 250-50 MCG/DOSE IH SCH (22:07)
[2018-03-05] MEDS: LATANOPROST 0.005% OPH SOLN 2.5 ML OU SCH (22:10)
--- NOTE | 2018-03-06 00:41 | PROGRESS NOTE E ---
Progress Note NAME: DESTINEE DICKSON : 1940 AGE: 78Y DATE: 03/05/2018 ROOM: 323 SUBJECTIVE: The patient went back into atrial fibrillation and subsequently there seemed to be atrial flutter versus PAT with block. Subsequently, the patient was given 5 mg of verapamil IV. She slowed further, and it looks like the patient has PAT with block. The patient, at that time, complained of wheezing, but she was lying down flat and I could not hear any wheezing on her. She was not short of breath. She had no chest pain or discomfort. OBJECTIVE: GENERAL: The patient is moderately obese. VITAL SIGNS: She is afebrile with a temperature of 98.9 degrees Fahrenheit, pulse 79 beats per minute, blood pressure 103/53, respirations 16 per minute, O2 sats 94% on room air. HEENT: Head is atraumatic/normocephalic. Eyes: Pupils are equal, round, regular, reactive to light and accommodation. Extraocular movements are normal. There is no conjunctival pallor. There is no scleral icterus. ENT negative. NECK: Supple. There is no JVD. Carotids are equal; there is no bruit. There is no lymphadenopathy. There is no goiter. Trachea is central. LUNGS: Clear to auscultation and percussion. There are no rhonchi, rales, or wheezing. HEART: S1 and S2 heard. There is no S3 gallop. There is no S4 gallop. There is a systolic murmur along the left sternal border and the apex. There is no rub. ABDOMEN: Soft, obese, nontender. There is no hepatosplenomegaly. Bowel sounds are well heard. There are no tender areas or masses. EXTREMITIES: Femorals are diminished. There are no femoral bruits. Leg pulses diminished. There is no pedal edema. There is no DVT or cellulitis. There is no calf tenderness. RETAIL FIELD SUPERVISOR: The patient is awake, alert, oriented x3 with no focal deficits. PSYCHIATRIC: The patient's judgment and insight are intact. Her affect is normal. Note that the patient's PFTs show only a mild obstructive defect with minimal improvement with bronchodilators. Her EKG shows PAT with block, most likely. The patient's white count is 8600, hemoglobin 13.9, hematocrit 41.1, and platelets are 271,000. The patient's sodium is 142.2, potassium now corrected at 3.9. Chloride 95, CO2 is 35. The patient's BUN is 28, creatinine 1.11. GFR is reduced at 58, most likely prerenal secondary to *------*. The patient's glucose is 95, calcium 9.1. Magnesium 1.8. The patient's thyroid function tests are stable and within normal limits. The patient's rheumatoid factor is negative. The patient's sed rate today is elevated at 42. The patient's ANCA and antinuclear antibody and double-stranded DNA antibody are all pending. The complement levels are all pending; they are send-out labs. ASSESSMENT: 1. SHORTNESS OF BREATH WITH WHEEZING. The patient's wheezing is subjective. I did not hear wheezing when she claimed that she had wheezing. There is no definite evidence of reactive airway disease or significant chronic obstructive pulmonary disease. Still, the shortness of breath etiology is not very clear. Question secondary to beta darwin; hence, I discussed with Dr. Saini, who will stop the patient's amlodipine and the patient's Toprol-XL, and change the patient to verapamil-SR 180 mg p.o. q.12 hours. This has been discussed with the patient. Will continue the patient on Eliquis. 2. HYPOKALEMIA, resolved. The patient's potassium level is normal. 3. ORTHOPNEA. At present, the patient is able to lie down flat. 4. SMALL PERICARDIAL EFFUSION. Etiology to be determined. As mentioned earlier, sed rate is slightly up. The other hematologic studies are pending. 5. HISTORY OF BREAST CANCER. Cured as per patient. 6. HYPOTHYROIDISM. Will continue the patient on Synthroid. The patient's T4 and TSH levels are normal. 7. OBESITY. 8. ABNORMAL ELECTROCARDIOGRAM. 9. PAROXYSMAL ATRIAL TACHYCARDIA WITH BLOCK. Will see if verapamil has helped this. The patient's troponin-I and CPK/MB are normal. 10. CLINICALLY AND BY CHEST X-RAY AND CT OF THE CHEST, no evidence of congestive heart failure. PLAN: Her medications have been reviewed. Her amlodipine and Toprol-XL have been stopped. Will continue the patient at present with Eliquis until INR is 2 or above with Coumadin. Hence, will stop the Eliquis when that happens. Will schedule the patient for IV Lexiscan Cardiolite stress test in the a.m. The procedure of stress test has been discussed with the patient in detail. Discussed with Dr. Saini. Medical decision making is of high complexity. There is no good etiology found for the patient's shortness of breath. Note 40 minutes spent on this patient with more than 50% of the time spent in direct patient care. Will follow with you. DICTATING PHYSICIAN: BETZY RODRIGUEZ M.D. [id number] PHY#: [id number] ID: [id number] JOB#: [id number] ACCT: [id number] cc: > MTDD
[2018-03-06] MEDS: LEVOTHYROXINE SODIUM 0.075 MG TABLET PO SCH (05:32)
[2018-03-06] MEDS ORDERED: REGADENOSON INJ 0.4 MG/5 ML DISP.SYRIN IV ONE (12:13)
[2018-03-06] MEDS: HYDROCHLOROTHIAZIDE 25 MG TABLET PO SCH (12:47)
[2018-03-06] MEDS: LISINOPRIL 10 MG TABLET PO SCH (12:48)
[2018-03-06] MEDS: VERAPAMIL HCL 180 MG TABLET.SA PO SCH ×2 (12:49→21:32)
[2018-03-06] MEDS: APIXABAN 5 MG TABLET PO SCH ×2 (12:49→17:38)
[2018-03-06] MEDS: FLUTICASONE/SALMETEROL DISKUS 250-50 MCG/DOSE IH SCH ×2 (12:49→22:04)
[2018-03-06 17:37] LABS: ANTIMYELOPEROXIDASE (MPO) AB <9.0 U/mL (0.0-9.0); ANTIPROTEINASE 3 (PR-3) AB <3.5 U/mL (0.0-3.5); CYTOPLASMIC (C-ANCA) <1:20 titer (Neg:<1:20)
--- NOTE | 2018-03-06 21:02 | Progress Note ---
Provider Note Provider Note: Progress Note NAME: DESTINEE DICKSON : 1940 AGE: 78Y DATE: 03/06/2018 ROOM: 323 SUBJECTIVE: The patient is in PAT with block. The patient denies any chest pain or discomfort. There is no shortness of breath or wheezing. There is no PND orthopnea. There is no ventricular arrhythmias seen. There is no pedal edema. There is no bleeding on Eliquis. There is no TIA or CVA symptoms. OBJECTIVE: GENERAL: The patient is moderately obese. VITAL SIGNS: She has a low-grade temperature of 99.2 degrees Fahrenheit, pulse b 85 eats per minute, blood pressure 101/50, respirations 16 per minute, O2 sats 94% on. 2 L/min of oxygen via nasal cannula. HEENT: Head is atraumatic/normocephalic. Eyes: Pupils are equal, round, regular, reactive to light and accommodation. Extraocular movements are normal. There is no conjunctival pallor. There is no scleral icterus. ENT negative. NECK: Supple. There is no JVD. Carotids are equal; there is no bruit. There is no lymphadenopathy. There is no goiter. Trachea is central. LUNGS: Clear to auscultation and percussion. There are no rhonchi, rales, or wheezing. HEART: S1 and S2 heard. There is no S3 gallop. There is no S4 gallop. There is a systolic murmur along the left sternal border and the apex. There is no rub. ABDOMEN: Soft, obese, nontender. There is no hepatosplenomegaly. Bowel sounds are well heard. There are no tender areas or masses. EXTREMITIES: Femorals are diminished. There are no femoral bruits. Leg pulses diminished. There is no pedal edema. There is no DVT or cellulitis. There is no calf tenderness. AUTOMOTIVE MAINTENANCE TECHNICIAN: The patient is awake, alert, oriented x3 with no focal deficits. PSYCHIATRIC: The patient's judgment and insight are intact. Her affect is normal. The patient had IV Lexiscan Cardiolite stress test. Prior to injection of the Lexiscan systolic blood pressure was 94 mmHg, and the patient was given IV normal saline wide open, and in spite of Lexiscan intravenous injection, blood pressure systolic was 10 1 mmHg. There was no reversible ischemia or MD or scar by scintigraphy. She was seen by learning services coordinator and has been placed on bronchodilators. ASSESSMENT: 1. SHORTNESS OF BREATH WITH WHEEZING. The patient's wheezing is subjective. I did not hear wheezing when she claimed that she had wheezing. There is no definite evidence of reactive airway disease or significant chronic obstructive pulmonary disease. Still, the shortness of breath etiology is not very clear. Question secondary to beta darwin; hence, I discussed with Dr. Saini, who will stop the patient's amlodipine and the patient's Toprol-XL, and change the patient to verapamil-SR 180 mg p.o. q.12 hours. This has been discussed with the patient. Will continue the patient on Eliquis. 2. HYPOKALEMIA, resolved. The patient's potassium level is normal. 3. ORTHOPNEA. At present, the patient is able to lie down flat. 4. SMALL PERICARDIAL EFFUSION. Etiology to be determined. As mentioned earlier, sed rate is slightly up. The other hematologic studies are pending. 5. HISTORY OF BREAST CANCER. Cured as per patient. 6. HYPOTHYROIDISM. Will continue the patient on Synthroid. The patient's T4 and TSH levels are normal. 7. OBESITY. 8. ABNORMAL ELECTROCARDIOGRAM. 9. PAROXYSMAL ATRIAL TACHYCARDIA WITH BLOCK. Will see if verapamil has helped this. The patient's troponin-I and CPK/MB are normal. 10. CLINICALLY AND BY CHEST X-RAY AND CT OF THE CHEST, no evidence of congestive heart failure. PLAN: Her medications have been reviewed. Note 40 minutes spent on this patient with more than 50% of the time spent in direct patient care. Will follow with you.. She is tolerating verapamil, but her blood pressure in the lower site. We will keep close watch on the patient's blood pressure. The stress test results were discussed with the patient in detail. Medical decision making is of moderate complexity. With respect to her rhythm will discuss with the EP sand tester at [facility], to see if he agrees that there patient has PAT with block. Been she may be able to come off Eliquis. Would recommend that the patient have a 30 day event monitor. Note 40 minutes spent on this patient with more than 50% of time spent in direct patient care Will follow with you.
--- NOTE | 2018-03-06 21:05 | PROGRESS NOTE E ---
Progress Note NAME: DESTINEE DICKSON : 1940 AGE: 78Y DATE: 03/06/2018 ROOM: 323 SUBJECTIVE: The patient is a 78-year-old -Maur[place] female who came in with severe shortness of breath; treated for pulmonary edema, BiPAP, and diuretic; and cardiac arrhythmia. The patient was started on Advair yesterday at 250/50 Diskus inhaler, 1 puff b.i.d., and appeared to be tolerating it well. The patient is feeling a lot better today. Denies any fever, chills, increasing cough, or purulent sputum production or hemoptysis. No chest pain. OBJECTIVE: GENERAL: The patient is awake, alert, coherent, oriented x3, not in acute respiratory distress. VITAL SIGNS: Temperature of 99.2 with a T-max of 99.2, blood pressure 101/50, pulse rate of 85, saturations 94% on 2 liters, and respiratory rate of 18. EYES: No jaundice or pallor. EARS, NOSE, AND THROAT: No ear drainage noted. No nasal discharge. HEAD AND NECK: No scalp swelling or tenderness. Neck is supple. CHEST AND LUNGS: No wheezing, no rhonchi, no coarse crackles. CARDIOVASCULAR: S1 and S2 is distinct. Normal rate, regular rhythm. ABDOMEN: Flabby, positive bowel sounds, soft, nondistended. EXTREMITIES: No joint swelling or cellulitis. DIAGNOSTICS: Pulmonary function test done today showed FVC of 58%, which is low and FEV-1 of 51%, the ratio of 75%. There was no obstructive airway defect on the spirometry. There is a moderate ventilatory impairment. The total lung capacity is also decreased 62%, suggestive of a moderate restrictive lung defect, possibly due to patient's obesity, pulmonary edema, and bilateral pleural effusions. The RENETTA was also low at 51%, probably related to the patient's obesity, pulmonary edema, CHF, and possible pulmonary hypertension. ASSESSMENT: 1. PULMONARY EDEMA, BILATERAL PLEURAL EFFUSION. Currently improved and appeared to be stable. Lung impaired sounds. 2. BRONCHIAL ASTHMA CANNOT BE COMPLETELY EXCLUDED. Currently not in acute exacerbation. Currently the patient is tolerated the Advair 250/50 Diskus inhaler 1 puff b.i.d. PLAN/RECOMMENDATION: 1. Continue Advair 250/50 Diskus inhaler 1 puff b.i.d. 2. Continue albuterol inhaler as needed. 3. Pulmonary follow up in 2 weeks following hospital discharge. DICTATING PHYSICIAN: CHIDI NAM MD,DINA,MPH [id number] PHY#: [id number] ID: [id number] JOB#: [id number] ACCT: [id number] cc: > MTDD
--- NOTE | 2018-03-06 21:14 | PDOC PROGRESS REPORT ---
Subjective Progress Note for:: 03/06/18 Subjective:: She was admitted for evaluation of shortness of breath, the 2D echo showed preserved ejection fraction of left ventricle, grade 1 diastolic dysfunction of left ventricle spirometry was done, consistent with restrictive lung disease who not completely rule out mild obstructive disease, Reason For Visit: HEART FAILURE Physical Exam Vital Signs: Temp Pulse Resp BP Pulse Ox 99.4 F 73 17 90/52 L 99 03/06/18 19:40 03/06/18 19:40 03/06/18 19:40 03/06/18 20:44 03/06/18 19:40 Intake & Output 03/05/18 03/06/18 03/07/18 06:59 06:59 06:59 Intake Total 1894 1617 551 Output Total 700 850 Balance 1194 767 551 Weight 90.5 kg General appearance: PRESENT: no acute distress Eye exam: PRESENT: PERRLA Respiratory exam: PRESENT: rhonchi Cardiovascular exam: PRESENT: +S2 Murmur grade: 3 GI/Abdominal exam: PRESENT: soft Neurological exam: PRESENT: alert Results Laboratory Results: 03/05/18 05:59 03/05/18 05:59 03/06/18 09:20 Stool Occult Blood NEGATIVE 03/03/18 03/03/18 03/03/18 04:55 04:55 11:36 Creatine Kinase 61 54 Troponin I 0.016 NT-Pro-B Natriuret Pep 03/03/18 03/03/18 03/03/18 11:36 17:30 17:30 Creatine Kinase 67 Troponin I 0.012 < 0.012 NT-Pro-B Natriuret Pep 03/04/18 04:33 Creatine Kinase Troponin I NT-Pro-B Natriuret Pep 1530 H Impressions: Chest X-Ray 03/02/18 22:00 IMPRESSION: New hazy opacity in the left lung base obscuring the left hemidiaphragm. Chest CT 03/03/18 00:00 IMPRESSION: Pericardial effusion is seen on 01/24/2018 has near completely resolved. Trace bilateral pleural effusions with bibasilar atelectasis right greater than left. Assessment & Plan - Diagnosis (1) Shortness of breath Is this a current diagnosis for this admission?: Yes (2) Restrictive lung disease Is this a current diagnosis for this admission?: Yes (3) Morbid obesity Is this a current diagnosis for this admission?: Yes (4) Diastolic CHF Qualifiers: Heart failure chronicity: chronic Qualified Code(s): I50.32 - Chronic diastolic (congestive) heart failure Is this a current diagnosis for this admission?: Yes
[2018-03-06] MEDS: LATANOPROST 0.005% OPH SOLN 2.5 ML OU SCH (22:05)
[2018-03-07] MEDS: LEVOTHYROXINE SODIUM 0.075 MG TABLET PO SCH (05:53)
[2018-03-07 07:46] LABS: ATYPICAL PANCA <1:20 titer (Neg:<1:20); PERINUCLEAR (P-ANCA) <1:20 titer (Neg:<1:20)
[2018-03-07 07:47] LABS: COMPLEMENT TOTAL (CH50) >60 U/mL (>41)
[2018-03-07 10:42] LABS: ANTINUCLEAR ANTIBODIES Negative (Negative)
[2018-03-07] MEDS: FLUTICASONE/SALMETEROL DISKUS 250-50 MCG/DOSE IH SCH (10:42)
[2018-03-07] MEDS: APIXABAN 5 MG TABLET PO SCH ×2 (10:43→17:59)
[2018-03-07] MEDS: VERAPAMIL HCL 180 MG TABLET.SA PO SCH (10:43)
[2018-03-07] MEDS: HYDROCHLOROTHIAZIDE 25 MG TABLET PO SCH (10:43)
[2018-03-07] MEDS: LISINOPRIL 10 MG TABLET PO SCH (10:43)
--- NOTE | 2018-03-07 17:19 | PDOC DISCHARGE SUMMARY ---
General - Admit/Disc Date/PCP Admission Date/Primary Care Provider: 03/03/18 00:42 SAMIA MAYO MD Discharge Date: 03/07/18 - Discharge Diagnosis (1) Acute diastolic (congestive) heart failure Is this a current diagnosis for this admission?: Yes (2) Shortness of breath Is this a current diagnosis for this admission?: Yes (3) Paroxysmal atrial fibrillation Is this a current diagnosis for this admission?: Yes (4) Diastolic CHF Is this a current diagnosis for this admission?: Yes (5) Morbid obesity Is this a current diagnosis for this admission?: Yes (6) Restrictive lung disease Is this a current diagnosis for this admission?: Yes - Additional Information Resuscitation Status: Full Code Discharge Activity: Activity As Tolerated, Balance Activity w/Rest, Weigh Daily Prescriptions: Apixaban [Eliquis 5 mg Tablet] 5 mg PO Q12 #60 tablet Levothyroxine Sodium [Synthroid 0.075 mg Tablet] 0.075 mg PO Q6AM #90 tablet Verapamil HCl [Calan Sr 180 mg Tablet.sa] 180 mg PO Q12 #60 tablet.sa Home Medications: Ergocalciferol (Vitamin D2) [Drisdol 50,000 unit (1.25MG) Capsule] 50,000 unit PO MO@1000 03/03/18 Latanoprost [Xalatan 0.005% Oph Soln 2.5 ml] 1 drop OU QHS 03/03/18 Acetaminophen [Tylenol 325 mg Tablet] 650 mg PO Q4HP PRN tablet 03/07/18 Apixaban [Eliquis 5 mg Tablet] 5 mg PO Q12 #60 tablet 03/07/18 Levothyroxine Sodium [Synthroid 0.075 mg Tablet] 0.075 mg PO Q6AM #90 tablet Lisinopril/Hydrochlorothiazide [Zestoretic 20-12.5 mg Tablet] 1 tab PO DAILY # 90 03/07/18 Verapamil HCl [Calan Sr 180 mg Tablet.sa] 180 mg PO Q12 #60 tablet.sa 03/07/18 History of Present Illness History of Present Illness: DESTINEE DICKSON is a 78 year old female.She came to the emergency room this morning for evaluation of shortness of breath for the last 4 days. She was evaluated in the emergency room a chest x-ray was done that demonstrated new opacity in the emergency room she was also wheezing on auscultation by the emergency room physicians it was felt that patient was in CHF the BNP was elevated, she was supported with noninvasive positive pressure ventilation BiPAP in the emergency room when she was in respiratory distress she was also found to have elevated blood pressure in the emergency room, she was started on nitroglycerin infusion for the control of blood pressure.2D echocardiogram was done this morning, it demonstrated normal ejection fraction of left ventricle, there was Doppler evidence of mild diastolic dysfunction of left ventricle, grade 1 the right ventricle systolic pressure could not be measured because of minimal tricuspid valve regurgitation jet envelope CT chest with contrast was done as well this morning, it demonstrated trace bilateral pleural effusion right more than left which was new when compared to 01/24/2018 that was also he has space disease in the right and left posterior lung bases likely atelectasis there is no overt CHF on the CT chest Hospital Course Hospital Course: Patient was admitted for the management of acute shortness of breath with wheezing, initially it was felt that she may have CHF, a 2D echo was done, it demonstrated preserved ejection fraction of left ventricle there was grade 1 diastolic dysfunction of left ventricle, no significant valvular heart disease, the right ventricular systolic pressure could not be assayed because of very minimal tricuspid regurgitation. She had episode of wheezing in the hospital, a full pulmonary function test was done, it was consistent with restrictive lung disease felt to be due to combination of morbid obesity and diastolic dysfunction of left ventricle. She was seen by cardiology Dr. Houser, pulmonary Dr. Alejandro. Physical Exam Vital Signs: Temp Pulse Resp BP Pulse Ox 99.4 F 97 14 98/49 L 94 03/07/18 16:01 03/07/18 16:01 03/07/18 16:01 03/07/18 16:01 03/07/18 16:01 Intake & Output 03/06/18 03/07/18 03/08/18 06:59 06:59 06:59 Intake Total 1617 896 482 Output Total 850 450 Balance 767 446 482 Weight 90.5 kg 94.2 kg General appearance: PRESENT: no acute distress Head exam: PRESENT: atraumatic, normocephalic Eye exam: PRESENT: conjunctiva pink, EOMI, PERRLA Ear exam: PRESENT: normal external ear exam Neck exam: PRESENT: full ROM Respiratory exam: PRESENT: clear to auscultation toni Cardiovascular exam: PRESENT: RRR, +S1, +S2 Murmur grade: 3 Pulses: PRESENT: normal dorsalis pedis pul, +2 pedal pulses bilateral Vascular exam: PRESENT: normal capillary refill GI/Abdominal exam: PRESENT: normal bowel sounds, soft Rectal exam: PRESENT: deferred Neurological exam: PRESENT: alert, awake, oriented to person, oriented to place , oriented to time, oriented to situation, CN II-XII grossly intact Psychiatric exam: PRESENT: appropriate affect, normal mood Skin exam: PRESENT: dry, intact, warm Results Laboratory Results: 03/05/18 05:59 03/05/18 05:59 03/03/18 03/03/18 03/03/18 04:55 04:55 11:36 Creatine Kinase 61 54 Troponin I 0.016 NT-Pro-B Natriuret Pep 03/03/18 03/03/18 03/03/18 11:36 17:30 17:30 Creatine Kinase 67 Troponin I 0.012 < 0.012 NT-Pro-B Natriuret Pep 03/04/18 04:33 Creatine Kinase Troponin I NT-Pro-B Natriuret Pep 1530 H Impressions: Chest X-Ray 03/02/18 22:00 IMPRESSION: New hazy opacity in the left lung base obscuring the left hemidiaphragm. Chest CT 03/03/18 00:00 IMPRESSION: Pericardial effusion is seen on 01/24/2018 has near completely resolved. Trace bilateral pleural effusions with bibasilar atelectasis right greater than left. Qualifiers - * PATIENT BEING DISCHARGED WITH ANY OF THE FOLLOWING DIAGNOSIS: No
[2018-03-07 17:53] VITALS: BP 95/48
--- NOTE | 2018-03-07 19:40 | EKG REPORT ---
SEVERITY:- ABNORMAL ECG - ATRIAL FLUTTER/FIBRILLATION, A-RATE 224 PROBABLE LVH WITH SECONDARY REPOL ABNRM : Confirmed by: Prisca Houser MD 07-Mar-2018 19:39:18
--- NOTE | 2018-03-07 21:31 | PROGRESS NOTE E ---
Progress Note NAME: DESTINEE DICKSON : 1940 AGE: 78Y DATE: 03/07/2018 ROOM: 323 SUBJECTIVE: The patient denies any chest pain or discomfort. There is no PND, orthopnea. The patient's rhythm monitor strips and also the patient's 12-lead EKG shows that the patient is in A. flutter with a 3:1 AV block. This is not PAT with block. The patient denies any chest pain or discomfort. There is no shortness of breath. There is no PND, orthopnea, or leg edema. There is no ventricular arrhythmia seen. There is no bleeding on Eliquis. There are no TIA or CVA symptoms. OBJECTIVE: GENERAL: On examination the patient is moderately obese, in no acute distress. She is well groomed. VITAL SIGNS: She is afebrile with a temperature of 98.4 degrees Fahrenheit, pulse is 90 beats per minute, blood pressure is 111/61, respirations are 16 per minute, O2 saturations are 96% on 2 liters nasal cannula. HEENT: Head is atraumatic, normocephalic. Eyes: Pupils are equal, round and regular, reactive to light and accommodation. Extraocular movements are normal. There is no conjunctival pallor. There is no scleral icterus. ENT is negative. NECK: Supple. There is no JVD. There is no lymphadenopathy. There is no goiter. Carotids are equal. There is no bruit. Trachea is central. LUNGS: Clear to auscultation and percussion. There are no rhonchi, rales, or wheezing. HEART: S1, S2 is heard. There is no S3 gallop. There is no S4 gallop. There is a systolic murmur in the left sternal border and the apex. There is no rub. ABDOMEN: Soft,obese, nontender. There is no hepatosplenomegaly. Bowel sounds are well heard. There are no tender areas or masses. EXTREMITIES: Femorals are diminished. There are no femoral bruits. Leg pulses are diminished. There is no pedal edema. There is no cyanosis or clubbing. There is no DVT or cellulitis. There is no calf tenderness. CENTRAL NERVOUS SYSTEM: The patient is conscious, awake, alert and oriented x3 with no focal deficits. DIAGNOSTICS: The patient's EKG now clearly shows that the patient is in atypical atrial flutter, probable LVH with secondary repolarization changes. This is not PAT with block. IMPRESSION: 1. SHORTNESS OF BREATH WITH WHEEZING. This is resolved. Most likely this is the effect of beta darwin. There is no evidence of heart failure. Note that the patient's echocardiogram did show some mild LV diastolic dysfunction but I am not sure if there was diastolic heart failure. 2. ORTHOPNEA, RESOLVED. This may be the effect of beta darwin on the patient's lungs. 3. SMALL PERICARDIAL EFFUSION, ETIOLOGY TO BE DETERMINED. Note that the patient's RA factor was negative. The patient's C-ANCA was less than 1/20. The patient's antinuclear antibody was negative. The patient's antiproteinase 3 *------* was less than 3.5, atypical P-ANCA was less than 1.20. The patient's P-ANCA antibody was less than 1.20. The myeloperoxidase antibody was less than 9. Double-stranded DNA antibody was less than 1. Total compliment was greater than 60. All these lab values are within normal limits. Hence, there is no evidence of any collagen vascular disease. 4. ATRIAL FLUTTER WITH CONTROLLED VENTRICULAR RESPONSE. 5. HISTORY OF BREAST CANCER, CURED PER PATIENT. 6. HYPOTHYROIDISM. The patient is on Synthroid. 7. OBESITY. 8. ABNORMAL ELECTROCARDIOGRAM. 9. THE PATIENT'S EKG DOES NOT SHOW PAT WITH BLOCK NOW AND IT IS NOW CONFIRMED THAT THE PATIENT HAS ATRIAL FLUTTER WITH 3:1 AV BLOCK. 10. CLINICALLY AND BY CHEST X-RAY AND CT SCAN NO EVIDENCE OF CONGESTIVE HEART FAILURE. RECOMMENDATIONS: Medications have been reviewed. Would continue the patient on verapamil. Note that the beta blockers have been stopped. Continue Eliquis. The plan is to bring the patient back in about week, since then the patient would have completed 4 weeks of uninterrupted therapy Eliquis and cardioversion to be done chemically or electrically here at [place]. The procedure of cardioversion was discussed with the patient. The complications such as skin burn, stroke, ventricular standstill needing CPR, profound bradycardia needing sometimes a temporary or a permanent pacemaker, and ventricular arrhythmias, which would lead to further shock to correct the arrhythmia have all been discussed with the patient. TIME SPENT: Forty minutes spent on this patient with more than 50% of the time spent on direct patient care. Discussed with Dr. Saini. We will sign off the case. 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 She has my cell number. I will make sure that the patient is followed up in the office and also make an appointment for the patient to electively come into the hospital for elective cardioversion. Her medications for discharge have been reviewed and discussed with the attending physician. We will follow with you. Thanking you for allowing me to participate in the care of this patient. We will sign off. DICTATING PHYSICIAN: BETZY RODRIGUEZ M.D. [id number] Y#: [id number] 2017 ID: [id number] JOB#: [id number] ACCT: [id number] cc: >
[2018-03-10] MEDS ORDERED: ERGOCALCIFEROL (VITAMIN D2) 50000 UNIT (1.25 MG) CAPSULE PO SCH (10:00)
== END 2018-03-07 18:20 | disposition home health service (06) | DRG 292 ==
LOC: ER 21:21 → EH 03-03 00:42 → 3W 03-03 02:21
PROVIDERS: ADMIT Internal Medicine; ATTEND Internal Medicine
PROC: 5A09457 Assistance with Respiratory Ventilation, 24-96 Consecutive Hours, Continuous Positive Airway Pressure (ICD-10-PCS; principal; 2018-03-02)
DX: I11.0 Hypertensive heart disease with heart failure (principal); I48.92 Unspecified atrial flutter; I47.1 Supraventricular tachycardia; I44.2 Atrioventricular block, complete; I50.33 Acute on chronic diastolic (congestive) heart failure; I48.0 Paroxysmal atrial fibrillation; E66.01 Morbid (severe) obesity due to excess calories; Z68.32 Body mass index [BMI] 32.0-32.9, adult; J98.4 Other disorders of lung; I07.1 Rheumatic tricuspid insufficiency; F17.210 Nicotine dependence, cigarettes, uncomplicated; E78.00 Pure hypercholesterolemia, unspecified; M17.0 Bilateral primary osteoarthritis of knee; M19.072 Primary osteoarthritis, left ankle and foot; M19.071 Primary osteoarthritis, right ankle and foot; E87.6 Hypokalemia; R06.01 Orthopnea; E89.0 Postprocedural hypothyroidism; Y83.6 Removal of other organ (partial) (total) as the cause of abnormal reaction of the patient, or of later complication, without mention of misadventure at the time of the procedure; Z79.899 Other long term (current) drug therapy; Z85.3 Personal history of malignant neoplasm of breast; Z90.13 Acquired absence of bilateral breasts and nipples
CPT/HCPCS: 36415; 71045; 71260; 78452; 80048; 80053; 81001; 82272; 82550; 83516; 83735; 83880; 84439; 84443; 84481; 84484; 85025; 85027; 85610; 85652; 86038; 86162; 86225; 86256; 86430; 93005; 93010; 93017; 93306; 94060; 94640; 94660; 94727; 94729; 96365; 96366; 96375; 99285; A9500; J1650; J1940; J2785; J3490

== ENCOUNTER 2018-11-04 12:39 | Observation (INO) | payer MEDICARE ==
--- NOTE | 2018-11-04 13:11 | ER Document Report ---
HPI - HPI Pain Level: 4 - REPRODUCTIVE Reproductive: DENIES: : Past Medical History - Social History Family History: Reviewed & Not Pertinent - Past Medical History Cardiac Medical History: Reports: Hx Atrial Fibrillation, Hx Congestive Heart Failure, Hx Hypercholesterolemia, Hx Hypertension Denies: Hx Coronary Artery Disease, Hx Heart Attack, Hx Peripheral Vascular Disease, Hx Heart Murmur Pulmonary Medical History: Denies: Hx Asthma, Hx Bronchitis, Hx COPD, Hx Pneumonia, Hx Tuberculosis Neurological Medical History: Denies: Hx Cerebrovascular Accident, Hx Seizures Endocrine Medical History: Reports: Hx Hyperthyroidism. Denies: Hx Graves' Disease Renal/ Medical History: Denies: Hx Peritoneal Dialysis Malignancy Medical History: Reports: Hx Breast Cancer GI Medical History: Denies: Hx Hepatitis, Hx Hiatal Hernia, Hx Ulcer Musculoskeletal Medical History: Reports Hx Arthritis - knees & ankles, Denies Hx Fibromyalgia, Denies Hx Muscular Dystrophy Traumatic Medical History: Denies: Hx Fractures Infectious Medical History: Denies: Hx Hepatitis Past Surgical History: Reports: Hx Mastectomy - double 2016, Hx Thyroid Surgery - removal of one, Hx Tubal Ligation. Denies: Hx Appendectomy, Hx Bowel Surgery, Hx Section, Hx Coronary Artery Bypass Graft, Hx Gastric Bypass Surgery, Hx Herniorrhaphy, Hx Hysterectomy, Hx Open Heart Surgery, Hx Pacemaker, Hx Tonsillectomy - Immunizations Hx Diphtheria, Pertussis, Tetanus Vaccination: Yes Vertical Provider Document - INFECTION CONTROL TRAVEL OUTSIDE OF THE [place] IN LAST 30 DAYS: No Course - Vital Signs Vital signs: Temp Pulse Resp BP Pulse Ox 98.3 F 80 20 140/60 H 97 11/04/18 12:51 11/04/18 12:51 11/04/18 12:51 11/04/18 12:51 11/04/18 12:51 Discharge - Discharge Referrals: SAMIA MAYO MD [Primary Care Provider] - Follow up as needed
--- NOTE | 2018-11-04 14:02 | ER Document Report ---
ED Medical Screen (RME) - General Chief Complaint: Ankle Pain Stated Complaint: LEFT FOOT PAIN Time Seen by Provider: 11/04/18 13:21 Primary Care Provider: SAMIA MAYO MD [Primary Care Provider] - Follow up as needed TRAVEL OUTSIDE OF THE [place] IN LAST 30 DAYS: No - HPI Notes: 11/04/18 13:57 70-year-old female presents to the ED with complaints of having left-sided pedal edema with chest pain and feels like it is hard to breathe, states woke up this way. Patient has a history of diastolic CHF and is a patient of Dr. Mayo. Patient reports she woke up with left foot ankle swelling, denies any trauma or falling. Reports the chest tightness and difficulty breathing has become progressive. Denies any calf pain. Has not tried any elevation, ice or heat. I have greeted and performed a rapid initial assessment of this patient. A comprehensive ED assessment and evaluation of the patient, analysis of test results and completion of medical decision making process will be conducted by an additional ED providers. - Related Data Allergies/Adverse Reactions: No Known Allergies Allergy (Verified 11/04/18 12:39) Past Medical History - Past Medical History Cardiac Medical History: Reports: Hx Atrial Fibrillation, Hx Congestive Heart Failure, Hx Hypercholesterolemia, Hx Hypertension Denies: Hx Coronary Artery Disease, Hx Heart Attack, Hx Peripheral Vascular Disease, Hx Heart Murmur Pulmonary Medical History: Denies: Hx Asthma, Hx Bronchitis, Hx COPD, Hx Pneumonia, Hx Tuberculosis Neurological Medical History: Denies: Hx Cerebrovascular Accident, Hx Seizures Endocrine Medical History: Reports: Hx Hyperthyroidism. Denies: Hx Graves' Disease Renal/ Medical History: Denies: Hx Peritoneal Dialysis Malignancy Medical History: Reports: Hx Breast Cancer GI Medical History: Denies: Hx Hepatitis, Hx Hiatal Hernia, Hx Ulcer Musculoskeltal Medical History: Reports Hx Arthritis - knees & ankles, Denies Hx Fibromyalgia, Denies Hx Muscular Dystrophy Traumatic Medical History: Denies: Hx Fractures Infectious Medical History: Denies: Hx Hepatitis Past Surgical History: Reports: Hx Mastectomy - double 2016, Hx Thyroid Surgery - removal of one, Hx Tubal Ligation. Denies: Hx Appendectomy, Hx Bowel Surgery, Hx Section, Hx Coronary Artery Bypass Graft, Hx Gastric Bypass Surgery, Hx Herniorrhaphy, Hx Hysterectomy, Hx Open Heart Surgery, Hx Pacemaker, Hx Tonsillectomy - Immunizations Hx Diphtheria, Pertussis, Tetanus Vaccination: Yes History of Influenza Vaccine for 05/2017 - 10/2017 Season: Yes Influenza Administration Date for 05/2017 - 10/2017 Season: 05/26/17 Physical Exam - Vital signs Vitals: Temp Pulse Resp BP Pulse Ox 98.3 F 80 20 140/60 H 97 11/04/18 12:51 11/04/18 12:51 11/04/18 12:51 11/04/18 12:51 11/04/18 12:51 - Respiratory Respiratory status: No respiratory distress Chest status: Nontender - Cardiovascular Rhythm: Regular Heart sounds: Normal auscultation - Skin Irregularity with: Swelling - left foot pedal edema Course - Vital Signs Vital signs: Temp Pulse Resp BP Pulse Ox 98.3 F 80 20 140/60 H 97 11/04/18 12:51 11/04/18 12:51 11/04/18 12:51 11/04/18 12:51 11/04/18 12:51 Doctor's Discharge - Discharge Referrals: SAMIA MAYO MD [Primary Care Provider] - Follow up as needed
--- NOTE | 2018-11-04 14:40 | RADIOLOGY REPORT (SQ) ---
EXAM DESCRIPTION: ANKLE RIGHT COMPLETE COMPLETED DATE/TIME: 11/04/2018 2:28 pm REASON FOR STUDY: right ankle pain COMPARISON: None. NUMBER OF VIEWS: Three views. TECHNIQUE: AP, lateral, and oblique radiographic images acquired of the right ankle. LIMITATIONS: None. FINDINGS: MINERALIZATION: Normal. BONES: No acute fracture or dislocation. No worrisome bone lesions. JOINTS: No effusions. SOFT TISSUES: Soft tissue swelling. OTHER: No other significant finding. IMPRESSION: Soft tissue swelling. No fracture. TECHNICAL DOCUMENTATION: JOB ID: [id number] [email or web address]- All Rights Reserved Reading location - IP/workstation name: [email or web address]
[2018-11-04 15:04] LABS: HEMATOCRIT 39.4 % (36.0-47.0); HEMOGLOBIN 13.3 g/dL (12.0-15.5); MEAN CORPUSCULAR HEMOGLOBIN 28.2 pg (27.0-33.4); MEAN CORPUSCULAR HGB CONC 33.7 g/dL (32.0-36.0); MEAN CORPUSCULAR VOLUME 84 fl (80-97); PLATELET COUNT 281 10^3/uL (150-450); RED BLOOD COUNT 4.71 10^6/uL (3.72-5.28); RED CELL DISTRIBUTION WIDTH 14.2 % (11.5-14.0); WHITE BLOOD COUNT 9.5 10^3/uL (4.0-10.5)
[2018-11-04] MEDS ORDERED: NITROGLYCERIN 0.4 MG/TAB 25 TAB/BOTTLE SL PRN (15:15)
[2018-11-04] MEDS ORDERED: ASPIRIN 81 MG TABLET, CHEWABLE PO ONE (15:20)
--- NOTE | 2018-11-04 15:22 | RADIOLOGY REPORT (SQ) ---
EXAM DESCRIPTION: CHEST SINGLE VIEW COMPLETED DATE/TIME: 11/04/2018 3:05 pm REASON FOR STUDY: sob with cp and pedal edema COMPARISON: CT chest 03/03/2018 all AP chest 09/30/2015 EXAM PARAMETERS: NUMBER OF VIEWS: One view. TECHNIQUE: Single frontal radiographic view of the chest acquired. RADIATION DOSE: NA LIMITATIONS: None. FINDINGS: LUNGS AND PLEURA: No acute infiltrates. No pleural effusion or pneumothorax. MEDIASTINUM AND HILAR STRUCTURES: No masses. Contour normal. HEART AND VASCULAR STRUCTURES: Borderline cardiomegaly BONES: No acute findings. HARDWARE: None in the chest. OTHER: Post bilateral mastectomy IMPRESSION: NO ACUTE RADIOGRAPHIC FINDING IN THE CHEST. TECHNICAL DOCUMENTATION: JOB ID: [id number] [employer]- All Rights Reserved Reading location - IP/workstation name: [email or web address]
--- NOTE | 2018-11-04 15:22 | ER Document Report ---
Addendum entered and electronically signed by CHRIS DE GUZMAN PA-C 11/04/18 17:18: Discharge - Discharge Clinical Impression: CHF exacerbation Qualifiers: Heart failure type: unspecified Qualified Code(s): I50.9 - Heart failure, unspecified Chest pain Qualifiers: Chest pain type: unspecified Qualified Code(s): R07.9 - Chest pain, unspecified Gout Qualifiers: Gout site: foot Gout etiology: unspecified cause Chronicity: acute Laterality: left Qualified Code(s): M10.9 - Gout, unspecified Condition: Stable Disposition: ADMITTED OBSERVATION Admitting Provider: Parveen Unit Admitted: Telemetry Referrals: SAMIA MAYO MD [Primary Care Provider] - Follow up as needed Addendum entered and electronically signed by CHRIS DE GUZMAN PA-C 11/04/18 17:17: Course - Vital Signs Vital signs: Temp Pulse Resp BP Pulse Ox 98.3 F 80 20 140/60 H 97 11/04/18 12:51 11/04/18 12:51 11/04/18 12:51 11/04/18 12:51 11/04/18 12:51 - Laboratory Result Diagrams: 11/04/18 14:44 11/04/18 14:44 Laboratory results interpreted by me: 11/04/18 11/04/18 11/04/18 14:44 14:44 14:44 RDW 14.2 H Carbon Dioxide 32 H Est GFR (Non-Af Amer) 51 L ALT 8 L NT-Pro-B Natriuret Pep 454 H - Diagnostic Test Radiology reviewed: Reports reviewed - EKG Interpretation by Ri EKG shows normal: Sinus rhythm, QRS Complexes Rhythm: A.Fib Original Note: ED General - General Chief Complaint: Ankle Pain Stated Complaint: LEFT FOOT PAIN Time Seen by Provider: 11/04/18 13:21 Primary Care Provider: SAMIA MAYO MD [Primary Care Provider] - Follow up as needed Mode of Arrival: Ambulatory Information source: Patient TRAVEL OUTSIDE OF THE [place] IN LAST 30 DAYS: No - HPI Patient complains to provider of: left foot swelling, cp, and sob Onset: Yesterday Onset/Duration: Constant Quality of pain: Pressure Severity: Severe Pain Level: 4 Context: atraumatic Associated symptoms: Chest pain, Leg swelling, Shortness of breath Exacerbated by: Denies Relieved by: Denies Similar symptoms previously: No Recently seen / treated by doctor: No Notes: 78-year-old -[place] female presents with left foot pain and swelling. She does not remember injuring it. Has been hurting her for 3 weeks. She is also here because she is short of breath and has left-sided chest pain. Multiple cardiac risk factors. She is on Eliquis for atrial fibrillation. - Related Data Allergies/Adverse Reactions: No Known Allergies Allergy (Verified 11/04/18 12:39) Past Medical History - General Information source: Patient - Social History Smoking Status: Unknown if Ever Smoked Family History: Reviewed & Not Pertinent Patient has suicidal ideation: No Patient has homicidal ideation: No - Past Medical History Cardiac Medical History: Reports: Hx Atrial Fibrillation, Hx Congestive Heart Failure, Hx Hypercholesterolemia, Hx Hypertension Denies: Hx Coronary Artery Disease, Hx Heart Attack, Hx Peripheral Vascular Disease, Hx Heart Murmur Pulmonary Medical History: Denies: Hx Asthma, Hx Bronchitis, Hx COPD, Hx Pneumonia, Hx Tuberculosis Neurological Medical History: Denies: Hx Cerebrovascular Accident, Hx Seizures Endocrine Medical History: Reports: Hx Hyperthyroidism. Denies: Hx Graves' Disease Renal/ Medical History: Denies: Hx Peritoneal Dialysis Malignancy Medical History: Reports: Hx Breast Cancer GI Medical History: Denies: Hx Hepatitis, Hx Hiatal Hernia, Hx Ulcer Musculoskeletal Medical History: Reports Hx Arthritis - knees & ankles, Denies Hx Fibromyalgia, Denies Hx Muscular Dystrophy Traumatic Medical History: Denies: Hx Fractures Infectious Medical History: Denies: Hx Hepatitis Past Surgical History: Reports: Hx Mastectomy - double 2016, Hx Thyroid Surgery - removal of one, Hx Tubal Ligation. Denies: Hx Appendectomy, Hx Bowel Surgery, Hx Section, Hx Coronary Artery Bypass Graft, Hx Gastric Bypass Surgery, Hx Herniorrhaphy, Hx Hysterectomy, Hx Open Heart Surgery, Hx Pacemaker, Hx Tonsillectomy - Immunizations Hx Diphtheria, Pertussis, Tetanus Vaccination: Yes Review of Systems - Review of Systems Notes: Constitutional: No fevers. No chills. EENT: No eye redness. No eye pain. No ear pain. No sore throat. Cardiovascular: Positive for chest pain. No palpitations. Respiratory: Positive for shortness of breath Gastrointestinal: No abdominal pain. No nausea, vomiting, or diarrhea. Genitourinary: Atraumatic. No lesions. No pain. No discharge. Musculoskeletal: Atraumatic. No swelling. No deformities. Positive for left foot pain and swelling Skin: No rash or lesions. Lymphatic: No swollen lymph nodes. Neurologic: No headache. No syncope. Psychiatric: No suicidal or homicidal ideation. Physical Exam - Vital signs Vitals: Temp Pulse Resp BP Pulse Ox 98.3 F 80 20 140/60 H 97 11/04/18 12:51 11/04/18 12:51 11/04/18 12:51 11/04/18 12:51 11/04/18 12:51 - Notes Notes: General: Well-developed, well-nourished. In no acute distress. Non-toxic appearing. Cardiac: Well-perfused. Regular rate and irregular rhythm. No murmurs, rubs, or gallops. Pulmonary: No respiratory distress. No cyanosis. Bilateral lung ogtti are clear to auscultation. Abdominal: Non-distended. Non-rigid. Bowels sounds are present in all four quadrants. No guarding or rebound. HEENT: Head is atraumatic. Conjunctivae not reddened. No tearing. PERRL. EOMI. Orbits atraumatic. No periorbital swelling or erythema. Oropharynx is without er ythema, swelling, or exudates. Neck: Supple. No adenopathy. No meningismus. Dermatologic: Warm with good turgor. No rash. Atraumatic. Chest: Atraumatic. No chest wall tenderness to palpation. Musculoskeletal: Moderate diffuse swelling of the left foot with tenderness to palpation. No deformity. Slight distal left calf tenderness to squeeze. Genitourinary: Examination deferred Neurologic: No gross neurologic deficits. Psychiatric: Normal mood. Course - Vital Signs Vital signs: Temp Pulse Resp BP Pulse Ox 98.3 F 80 20 140/60 H 97 11/04/18 12:51 11/04/18 12:51 11/04/18 12:51 11/04/18 12:51 11/04/18 12:51 - Laboratory Result Diagrams: 11/04/18 14:44 11/04/18 14:44 Laboratory results interpreted by me: 11/04/18 11/04/18 11/04/18 14:44 14:44 14:44 RDW 14.2 H Carbon Dioxide 32 H Est GFR (Non-Af Amer) 51 L ALT 8 L NT-Pro-B Natriuret Pep 454 H Discharge - Discharge Clinical Impression: CHF exacerbation, Chest pain Condition: Stable Disposition: ADMITTED OBSERVATION Admitting Provider: Parveen Unit Admitted: Telemetry Referrals: SAMIA MAYO MD [Primary Care Provider] - Follow up as needed
[2018-11-04 15:28] LABS: ALANINE AMINOTRANSFERASE 8 U/L (9-52); ALBUMIN 3.8 g/dL (3.5-5.0); ALKALINE PHOSPHATASE 87 U/L (38-126); ANION GAP 10 (5-19); ASPARTATE AMINO TRANSFERASE 27 U/L (14-36); BILIRUBIN,DIRECT 0.4 mg/dL (0.0-0.4); BILIRUBIN,TOTAL 0.6 mg/dL (0.2-1.3); BLOOD UREA NITROGEN 18 mg/dL (7-20); CALCIUM 9.7 mg/dL (8.4-10.2); CARBON DIOXIDE 32 mmol/L (22-30); CHLORIDE 99 mmol/L (98-107); GLUCOSE 104 mg/dL (75-110); POTASSIUM 3.6 mmol/L (3.6-5.0); SODIUM 140.8 mmol/L (137-145); TOTAL PROTEIN 7.4 g/dL (6.3-8.2)
[2018-11-04 15:29] LABS: ABSOLUTE LYMPHOCYTES# (MANUAL) 2.6 10^3/uL (0.5-4.7); ABSOLUTE MONOCYTES # (MANUAL) 1.1 10^3/uL (0.1-1.4); ABSOLUTE NEUTROPHILS# (MANUAL) 5.8 10^3/uL (1.7-8.2); BASOPHILS % (MANUAL) 0 % (0-2); EOSINOPHILS % (MANUAL) 0 % (0-6); LYMPHOCYTES % (MANUAL) 27 % (13-45); MONOCYTES % (MANUAL) 12 % (3-13); SEGMENTED NEUTROPHILS % (MAN) 61 % (42-78); TOTAL CELLS COUNTED 100
[2018-11-04 15:30] LABS: PLATELET COMMENT ADEQUATE; RBC MORPHOLOGY COMMENT NORMO-CYTIC/CHROMIC
[2018-11-04 15:40] LABS: CREATINE KINASE MB 0.32 ng/mL (<4.55); NT PRO BNP 454 pg/mL (<450)
[2018-11-04 15:41] LABS: TROPONIN I < 0.012 ng/mL
--- NOTE | 2018-11-04 16:03 | EKG REPORT ---
SEVERITY:- ABNORMAL ECG - SINUS RHYTHM WITH PACS. PROBABLE LVH WITH SECONDARY REPOL ABNRM : Confirmed by: Gregorio Huffman MD 04-Nov-2018 16:02:31
--- NOTE | 2018-11-04 16:54 | RADIOLOGY REPORT (SQ) ---
EXAM DESCRIPTION: FOOT LEFT COMPLETE COMPLETED DATE/TIME: 11/04/2018 4:36 pm REASON FOR STUDY: swelling/pain COMPARISON: Left foot films 11/30/2014, 05/19/2011 NUMBER OF VIEWS: Three views. TECHNIQUE: AP, lateral and oblique radiographic images acquired of the left foot. LIMITATIONS: None. FINDINGS: MINERALIZATION: Normal. BONES: No acute fracture or malalignment. JOINTS: Marginal erosions at the 1st and 5th metatarsophalangeal joints, question gout SOFT TISSUES: Diffuse forefoot soft tissue swelling. No radiopaque foreign body or soft tissue gas OTHER: No other significant finding. IMPRESSION: No acute fracture or malalignment. Question gouty arthritis at the 1st and 5th metatarsophalangeal joints TECHNICAL DOCUMENTATION: JOB ID: [id number] [email or web address]- All Rights Reserved Reading location - IP/workstation name: [email or web address]
[2018-11-04] MEDS ORDERED: (PENDING PHARMACY ID) (Lisinopril/Hydrochlorothiazide [Zestoretic 20-12.5 Mg Tablet] 1 TAB PO SCH (19:30)
[2018-11-04] MEDS ORDERED: VERAPAMIL HCL 180 MG PO SCH (19:30)
[2018-11-04 20:06] LABS: INTERNATIONAL RATION (INR) 1.07; PROTHROMBIN TIME 14.5 SEC (11.4-15.4)
--- NOTE | 2018-11-04 20:20 | PDOC H&P ---
History of Present Illness Admission Date/PCP: 11/04/18 17:23 SAMIA MAYO MD History of Present Illness: DESTINEE DICKSON is a 78 year old female She came to the emergency room for evaluation of pain in the left big toe, In the emergency room x-ray of the left foot was done, it demonstrated marginal erosion at the fourth and fifth metatarsophalangeal joint while she was in the emergency room I believe she also complained of chest pain, because of the chest pain the ED provider suggest that patient needed to be admitted to the hospital For further evaluation.Patient was admitted for 24 hours for evaluation, 3 sets of cardiac enzymes were negative for acute NV Past Medical History Cardiac Medical History: Reports: Atrial Fibrillation, Congestive Heart Failure, Hyperlipidema, Hypertension Endocrine Medical History: Reports: Hyperthyroidism Malignancy Medical History: Reports: Breast Cancer Musculoskeltal Medical History: Reports: Arthritis - knees & ankles Past Surgical History Past Surgical History: Reports: Mastectomy - double 2016, Tubal Ligation Social History Smoking Status: Former Smoker Frequency of Alcohol Use: None Hx Recreational Drug Use: No Drugs: None Hx Prescription Drug Abuse: No - Advance Directive Resuscitation Status: Full Code Family History Family History: Reviewed & Not Pertinent Parental Family History Reviewed: Yes Children Family History Reviewed: Yes Sibling(s) Family History Reviewed.: Yes Medication/Allergy Home Medications: RX: Anastrozole [Arimidex 1 mg Tablet] 1 mg PO DAILY 11/04/18 RX: Apixaban [Eliquis 5 mg Tablet] 5 mg PO Q12 11/04/18 RX: Ergocalciferol (Vitamin D2) [Drisdol 50,000 unit (1.25MG) Capsule] 50,000 unit PO MO@1000 11/04/18 RX: Latanoprost [Xalatan 0.005% Oph Soln 2.5 ml] 1 drop OU QHS 11/04/18 RX: Levothyroxine Sodium [Synthroid 0.075 mg Tablet] 0.075 mg PO Q6AM 11/04/18 RX: Lisinopril/Hydrochlorothiazide [Zestoretic 20-12.5 mg Tablet] 1 tab PO DAILY 11/04/18 RX: Timolol Maleate [Timoptic 0.25% Oph Soln 5 ml] 1 drop OU BID 11/04/18 RX: Verapamil HCl [Verapamil ER] 180 mg PO Q12 11/04/18 RX: Prednisone [Lucita] 40 mg PO DAILY #5 tablet. 11/05/18 Allergies/Adverse Reactions: No Known Allergies Allergy (Verified 11/04/18 12:39) Review of Systems Constitutional: ABSENT: chills, fever(s), headache(s), weight gain, weight loss Eyes: ABSENT: visual disturbances Ears: ABSENT: hearing changes Cardiovascular: ABSENT: chest pain, dyspnea on exertion, edema, orthropnea, palpitations Respiratory: ABSENT: cough, hemoptysis Gastrointestinal: ABSENT: abdominal pain, constipation, diarrhea, hematemesis, hematochezia, nausea, vomiting Genitourinary: ABSENT: dysuria, hematuria Musculoskeletal: ABSENT: joint swelling Integumentary: ABSENT: rash, wounds Neurological: ABSENT: abnormal gait, abnormal speech, confusion, dizziness, focal weakness, syncope Psychiatric: ABSENT: anxiety, depression, homidical ideation, suicidal ideation Endocrine: ABSENT: cold intolerance, heat intolerance, menstrual abnormalities, polydipsia, polyuria Hematologic/Lymphatic: ABSENT: easy bleeding, easy bruising, lymphadenopathy Physical Exam Vital Signs: Temp Pulse Resp BP Pulse Ox 98.5 F 75 17 161/73 H 97 11/04/18 18:52 11/04/18 18:52 11/04/18 18:52 11/04/18 18:52 11/04/18 18:52 Intake & Output 11/03/18 11/04/18 11/05/18 06:59 06:59 06:59 Weight 102.4 kg General appearance: PRESENT: no acute distress, well-developed, well-nourished Head exam: PRESENT: atraumatic, normocephalic Eye exam: PRESENT: conjunctiva pink, EOMI, PERRLA Ear exam: PRESENT: normal external ear exam Mouth exam: PRESENT: moist, tongue midline Neck exam: PRESENT: full ROM Respiratory exam: PRESENT: clear to auscultation toni Cardiovascular exam: PRESENT: RRR, +S1, +S2 Pulses: PRESENT: normal dorsalis pedis pul, +2 pedal pulses bilateral Vascular exam: PRESENT: normal capillary refill GI/Abdominal exam: PRESENT: normal bowel sounds, soft Rectal exam: PRESENT: deferred Musculoskeletal exam: PRESENT: other - swelling ,tenderness of the left big toe Neurological exam: PRESENT: alert, awake, oriented to person, oriented to place, oriented to time, oriented to situation, CN II-XII grossly intact Psychiatric exam: PRESENT: appropriate affect, normal mood Skin exam: PRESENT: dry, intact, warm Results Laboratory Results: 11/04/18 14:44 11/04/18 14:44 11/04/18 11/04/18 14:44 14:44 WBC 9.5 RBC 4.71 Hgb 13.3 Hct 39.4 MCV 84 MCH 28.2 MCHC 33.7 RDW 14.2 H Plt Count 281 Seg Neutrophils % Not Reportable Lymphocytes % Not Reportable Monocytes % Not Reportable Eosinophils % Not Reportable Basophils % Not Reportable Absolute Neutrophils Not Reportable Absolute Lymphocytes Not Reportable Absolute Monocytes Not Reportable Absolute Eosinophils Not Reportable Absolute Basophils Not Reportable Sodium 140.8 Potassium 3.6 Chloride 99 Carbon Dioxide 32 H Anion Gap 10 BUN 18 Creatinine 1.05 Est GFR ( Amer) > 60 Est GFR (Non-Af Amer) 51 L Glucose 104 Calcium 9.7 Total Bilirubin 0.6 AST 27 ALT 8 L Alkaline Phosphatase 87 Total Protein 7.4 Albumin 3.8 11/04/18 14:44 CK-MB (CK-2) 0.32 Troponin I < 0.012 NT-Pro-B Natriuret Pep 454 H Impressions: Ankle X-Ray 11/04/18 13:26 IMPRESSION: Soft tissue swelling. No fracture. Chest X-Ray 11/04/18 13:59 IMPRESSION: NO ACUTE RADIOGRAPHIC FINDING IN THE CHEST. Foot X-Ray 11/04/18 16:17 IMPRESSION: No acute fracture or malalignment. Question gouty arthritis at the 1st and 5th metatarsophalangeal joints Assessment & Plan - Diagnosis (1) Chest pain Qualifiers: Chest pain type: unspecified Qualified Code(s): R07.9 - Chest pain, unspecified Is this a current diagnosis for this admission?: Yes Plan: Patient was admitted for observation, 3 sets of cardiac enzymes negative for acute NV (2) Acute gouty arthropathy Is this a current diagnosis for this admission?: Yes Plan: She presented with classic podagra with pain, redness and swelling of the met atarsophalangeal joint of the great toe
[2018-11-04 20:28] LABS: CREATINE KINASE MB 0.29 ng/mL (<4.55)
[2018-11-04 20:32] LABS: FREE T4 (FREE THYROXINE) 1.34 ng/dL (0.78-2.19)
[2018-11-04 20:39] LABS: TROPONIN I < 0.012 ng/mL
[2018-11-04 20:46] LABS: THYROID STIMULATING HORMONE 1.35 uIU/mL (0.47-4.68)
[2018-11-04] MEDS: APIXABAN 5 MG TABLET PO SCH (21:27)
[2018-11-04] MEDS: ANASTROZOLE 1 MG TABLET PO SCH (21:27)
[2018-11-04] MEDS: VERAPAMIL HCL 180 MG TABLET.SA PO SCH (21:27)
[2018-11-04] MEDS: TIMOLOL MALEATE 0.25% OPH SOLN 5 ML OU SCH (21:28)
[2018-11-04] MEDS: HYDROCHLOROTHIAZIDE 12.5 MG TABLET PO SCH (21:37)
[2018-11-04] MEDS: LISINOPRIL 10 MG TABLET PO SCH (21:37)
[2018-11-04] MEDS ORDERED: LATANOPROST 0.005% OPH SOLN 2.5 ML OU SCH (22:00)
[2018-11-05 01:54] LABS: CREATINE KINASE MB 0.28 ng/mL (<4.55)
[2018-11-05 01:59] LABS: TROPONIN I < 0.012 ng/mL
[2018-11-05] MEDS ORDERED: LEVOTHYROXINE SODIUM 0.075 MG TABLET PO SCH (06:00)
[2018-11-05 07:59] LABS: CREATINE KINASE MB 0.26 ng/mL (<4.55)
[2018-11-05 08:01] LABS: TROPONIN I < 0.012 ng/mL
--- NOTE | 2018-11-05 08:10 | XCELERA REPORT ---
[address] [place] [facility] [address] Lower Extremity Venous Evaluation Procedure: Color flow and duplex imaging of the veins of the left lower extremity as well as the right Common Femoral vein. Right Sided Venous Evaluation The right common femoral vein is fully compressible. Spontaneous and phasic flow is present in the right common femoral vein. Left Sided Venous Evaluation Normal vessel filling wall to wall, compression and augmentation as well as Colour flow down to the infrageniculate veins. Interpretation Summary No duplex evidence of DVT or obstruction in the left lower extremity nor in the right Common Femoral vein. Name: DESTINEE DICKSON Age: 78 yrs Gender: Female : 1940 Patient Status: Emergency Patient Location: ER Study Date: 11/04/2018 03:42 PM Reason For Study: swelling left foot/calf pain Ordering Physician: CHRIS DE GUZMAN Performed By: Mildred Arguello : CHRIS DE GUZMAN > Rodger Gallegos
[2018-11-05] MEDS: APIXABAN 5 MG TABLET PO SCH (09:38)
[2018-11-05] MEDS: HYDROCHLOROTHIAZIDE 12.5 MG TABLET PO SCH (09:38)
[2018-11-05] MEDS: LISINOPRIL 10 MG TABLET PO SCH (09:38)
[2018-11-05] MEDS: VERAPAMIL HCL 180 MG TABLET.SA PO SCH (09:39)
[2018-11-05] MEDS: TIMOLOL MALEATE 0.25% OPH SOLN 5 ML OU SCH (09:40)
[2018-11-05] MEDS: ANASTROZOLE 1 MG TABLET PO SCH (09:40)
[2018-11-05 14:49] VITALS: BP 131/56
[2018-11-05] MEDS ORDERED: PREDNISONE 20 MG TABLET PO ONE (15:00)
--- NOTE | 2018-11-05 16:42 | PDOC DISCHARGE SUMMARY ---
General - Admit/Disc Date/PCP Admission Date/Primary Care Provider: 11/04/18 17:23 SAMIA MAYO MD Discharge Date: 11/05/18 - Discharge Diagnosis (1) Chest pain Is this a current diagnosis for this admission?: Yes (2) Acute gouty arthropathy Is this a current diagnosis for this admission?: Yes - Additional Information Resuscitation Status: Full Code Discharge Diet: As Tolerated Discharge Activity: Activity As Tolerated Prescriptions: RX: Prednisone [Lucita] 40 mg PO DAILY #5 tablet. Home Medications: RX: Anastrozole [Arimidex 1 mg Tablet] 1 mg PO DAILY 11/04/18 RX: Apixaban [Eliquis 5 mg Tablet] 5 mg PO Q12 11/04/18 RX: Ergocalciferol (Vitamin D2) [Drisdol 50,000 unit (1.25MG) Capsule] 50,000 unit PO MO@1000 11/04/18 RX: Latanoprost [Xalatan 0.005% Oph Soln 2.5 ml] 1 drop OU QHS 11/04/18 RX: Levothyroxine Sodium [Synthroid 0.075 mg Tablet] 0.075 mg PO Q6AM 11/04/18 RX: Lisinopril/Hydrochlorothiazide [Zestoretic 20-12.5 mg Tablet] 1 tab PO DAILY 11/04/18 RX: Timolol Maleate [Timoptic 0.25% Oph Soln 5 ml] 1 drop OU BID 11/04/18 RX: Verapamil HCl [Verapamil ER] 180 mg PO Q12 11/04/18 RX: Prednisone [Lucita] 40 mg PO DAILY #5 tablet. 11/05/18 History of Present Illness History of Present Illness: DESTINEE DICKSON is a 78 year old female She came to the emergency room for evaluation of pain in the left big toe, In the emergency room x-ray of the left foot was done, it demonstrated marginal erosion at the fourth and fifth metatarsophalangeal joint while she was in the emergency room I believe she also complained of chest pain, because of the chest pain the ED provider suggest that patient needed to be admitted to the hospital For further ev aluation.Patient was admitted for 24 hours for evaluation, 3 sets of cardiac enzymes were negative for acute MN Hospital Course Hospital Course: Patient was admitted for the management of chest pain, 3 sets of cardiac enzymes were negative for acute MN, she has acute gouty arthropathy, podagra of the left big toe , this was treated with prednisone. Hospital course was not eventful Physical Exam Vital Signs: Temp Pulse Resp BP Pulse Ox 98.4 F 74 17 131/56 H 96 11/05/18 14:47 11/05/18 14:47 11/05/18 14:47 11/05/18 14:47 11/05/18 14:47 Intake & Output 11/04/18 11/05/18 11/06/18 06:59 06:59 06:59 Weight 103.4 kg General appearance: PRESENT: no acute distress, well-developed, well-nourished Head exam: PRESENT: atraumatic, normocephalic Eye exam: PRESENT: conjunctiva pink, EOMI, PERRLA Ear exam: PRESENT: normal external ear exam Mouth exam: PRESENT: moist, tongue midline Neck exam: PRESENT: full ROM Respiratory exam: PRESENT: clear to auscultation toni Cardiovascular exam: PRESENT: RRR, +S1, +S2 Pulses: PRESENT: normal dorsalis pedis pul, +2 pedal pulses bilateral Vascular exam: PRESENT: normal capillary refill GI/Abdominal exam: PRESENT: normal bowel sounds, soft Rectal exam: PRESENT: deferred Neurological exam: PRESENT: alert, awake, oriented to person, oriented to place, oriented to time, oriented to situation, CN II-XII grossly intact Psychiatric exam: PRESENT: appropriate affect, normal mood Skin exam: PRESENT: dry, intact, warm Results Laboratory Results: 11/04/18 14:44 11/04/18 14:44 11/04/18 19:45 TSH 1.35 Free T4 1.34 11/04/18 11/04/18 11/04/18 14:44 19:45 19:45 Creatine Kinase 55 CK-MB (CK-2) 0.32 0.29 Troponin I < 0.012 < 0.012 NT-Pro-B Natriuret Pep 454 H 11/05/18 11/05/18 11/05/18 01:18 01:18 07:10 Creatine Kinase 53 52 CK-MB (CK-2) 0.28 Troponin I < 0.012 NT-Pro-B Natriuret Pep 11/05/18 07:10 Creatine Kinase CK-MB (CK-2) 0.26 Troponin I < 0.012 NT-Pro-B Natriuret Pep Impressions: Ankle X-Ray 11/04/18 13:26 IMPRESSION: Soft tissue swelling. No fracture. Chest X-Ray 11/04/18 13:59 IMPRESSION: NO ACUTE RADIOGRAPHIC FINDING IN THE CHEST. Foot X-Ray 11/04/18 16:17 IMPRESSION: No acute fracture or malalignment. Question gouty arthritis at the 1st and 5th metatarsophalangeal joints Qualifiers - * PATIENT BEING DISCHARGED WITH ANY OF THE FOLLOWING DIAGNOSIS: No
[2018-11-10] MEDS ORDERED: ERGOCALCIFEROL (VITAMIN D2) 50000 UNIT (1.25 MG) CAPSULE PO SCH (10:00)
== END 2018-11-05 15:22 | disposition home or self-care (01) ==
LOC: ER 12:39 → EH 17:23 → 5 18:48
PROVIDERS: ADMIT Internal Medicine; ATTEND Internal Medicine
DX: R07.9 Chest pain, unspecified (principal); M10.9 Gout, unspecified; R06.02 Shortness of breath; I48.91 Unspecified atrial fibrillation; I11.0 Hypertensive heart disease with heart failure; I50.30 Unspecified diastolic (congestive) heart failure; M13.862 Other specified arthritis, left knee; M13.861 Other specified arthritis, right knee; M13.872 Other specified arthritis, left ankle and foot; M13.871 Other specified arthritis, right ankle and foot; E05.90 Thyrotoxicosis, unspecified without thyrotoxic crisis or storm; Z90.13 Acquired absence of bilateral breasts and nipples; Z79.899 Other long term (current) drug therapy; Z87.891 Personal history of nicotine dependence; Z85.3 Personal history of malignant neoplasm of breast; Z79.02 Long term (current) use of antithrombotics/antiplatelets; Z98.890 Other specified postprocedural states
CPT/HCPCS: 93005; 99285; 36415 ×2; 84439; 82553 ×2; 82550 ×2; 84443; 85025; 85610; 85730; 80053; 84484 ×2; 83880; 93971 ×2; 73610; 71045; 73630; 93010; G0378 ×2; A9270 ×13; J3490 ×2; J7512

== ENCOUNTER → 2018-11-25 | Outpatient (CLI) | payer MEDICARE ==
--- NOTE | 2018-11-25 09:16 | WOMENS IMAGING REPORT ---
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 LIMITATIONS: None. FINDINGS: LUMBAR SPINE: The bone mineral density (BMD) measured from L1-L4 in the AP projection correlates with a T-score of -0.2, which is normal as defined by the World Health Organization. BMD change since the prior examina tion dated 11/23/2016 is -2.5%. HIP: The bone mineral density (BMD) measured in the left hip correlates with a T-score of 0.8, which is no rmal as defined by the World Health Organization. BMD change since the prior examination dated 2016 is 4.1%. IMPRESSION: 1. LUMBAR SPINE: NORMAL. 2. HIP: NORMAL. COMMENT: The World Health Organization defines low BMD as follows: T-score: Normal: Greater than -1.0 Osteopenia: Between -1.0 and -2.5 Osteoporosis: Less than -2.5 without fractures Established osteoporosis: Less than -2.5 with fractures In general, you may wish to consider: Diagnosis Treatment Follow-up DEXA Normal BMD Prevention 2-3 years Osteopenia Prevention/Therapy 1-2 years Osteoporosis Therapy Yearly TECHNICAL DOCUMENTATION: JOB ID: [id number] [employer]- All Rights Reserved Reading location - IP/workstation name: [email or web address]
== END ==
LOC: WI 07:57
PROVIDERS: ATTEND Internal Medicine Hematology & Oncology
DX: M81.0 Age-related osteoporosis without current pathological fracture (principal); Z79.811 Long term (current) use of aromatase inhibitors
CPT/HCPCS: 77080

== ENCOUNTER 2019-03-23 12:21 | Emergency (ER) | payer MEDICARE ==
[2019-03-23] MEDS ORDERED: CIPROFLOXACIN HCL 0.3% OPH SOLN 2.5 ML OS ONE (14:00)
[2019-03-23 14:06] VITALS: BP 136/73
--- NOTE | 2019-03-23 14:08 | ER Document Report ---
HPI - HPI Patient complains to provider of: L eye pain, discharge Time Seen by Provider: 03/23/19 13:41 Pain Level: 0 Context: 79-year-old female with history of glaucoma who is blind in her right eye and has baseline blurriness in her left eye presents emergency department with chief complaint of left eye swelling and "skin peeling off when I closed and open my eye". Patient states that she was seen approximately 1 month ago and placed on steroid drops for approximately 3 weeks and states that her eyes felt better. She said over the last week her symptoms have gotten progressively worse and when she wakes up in the morning she has purulent discharge coming from her eye. She also complains of photophobia and excessive tearing. She tried to follow- up with her optometrist this morning but never heard back. She was concerned and came to the emergency department. She denies fevers or chills, eye entrapment, any other symptoms - EENT EENT: REPORTS: Eye problems - REPRODUCTIVE Reproductive: DENIES: : Past Medical History - Social History Smoking Status: Never Smoker Frequency of alcohol use: None Drug Abuse: None Family History: Reviewed & Not Pertinent Patient has suicidal ideation: No Patient has homicidal ideation: No - Past Medical History Cardiac Medical History: Reports: Hx Atrial Fibrillation, Hx Congestive Heart Failure, Hx Hypercholesterolemia, Hx Hypertension Denies: Hx Coronary Artery Disease, Hx Heart Attack, Hx Peripheral Vascular Disease, Hx Heart Murmur Pulmonary Medical History: Denies: Hx Asthma, Hx Bronchitis, Hx COPD, Hx Pneumonia, Hx Tuberculosis Neurological Medical History: Denies: Hx Cerebrovascular Accident, Hx Seizures Endocrine Medical History: Reports: Hx Hyperthyroidism. Denies: Hx Graves' Disease Renal/ Medical History: Denies: Hx Peritoneal Dialysis Malignancy Medical History: Reports: Hx Breast Cancer GI Medical History: Denies: Hx Hepatitis, Hx Hiatal Hernia, Hx Ulcer Musculoskeletal Medical History: Reports Hx Arthritis - knees & ankles, Denies Hx Fibromyalgia, Denies Hx Muscular Dystrophy, Denies Hx Systemic Lupus Erythematosus Traumatic Medical History: Denies: Hx Fractures Infectious Medical History: Denies: Hx Hepatitis Past Surgical History: Reports: Hx Mastectomy - double 2016, Hx Thyroid Surgery - removal of one, Hx Tubal Ligation. Denies: Hx Appendectomy, Hx Bowel Surgery, Hx Section, Hx Coronary Artery Bypass Graft, Hx Gastric Bypass Surgery, Hx Herniorrhaphy, Hx Hysterectomy, Hx Open Heart Surgery, Hx Pacemaker, Hx Tonsillectomy - Immunizations Hx Diphtheria, Pertussis, Tetanus Vaccination: Yes Vertical Provider Document - CONSTITUTIONAL Notes: PHYSICAL EXAMINATION: Reviewed vital signs and charting by RN GENERAL: Alert, interacts well. No acute distress. HEAD: Normocephalic, atraumatic. EYES: Pupils equal and round. Extraocular movements intact. Left I injected, cornea hazy, periorbital swelling of the upper and lower eyelid with a small break in the skin of the lower eyelid with no purulent discharge seen. Visual acuity failed because patient is blind in right eye and has blurred vision in the left eye. Fluoroscein stain done on left eye and no evidence of corneal abrasion or corneal ulcer. ENT: Oral mucosa moist, tongue midline. NECK: Full range of motion. Trachea midline. EXTREMITIES: Moves all 4 extremities spontaneously. No edema, No cyanosis. PSYCH: Normal affect, normal mood. SKIN: Warm, dry, normal turgor. No rashes or lesions noted. - INFECTION CONTROL TRAVEL OUTSIDE OF THE [place] IN LAST 30 DAYS: No Course - Re-evaluation Re-evalutation: 03/23/19 14:05 Patient overall well-appearing and afebrile. I called Dr. Orta's office and arranged urgent follow-up for her to be seen at 1345 tomorrow, March 24. Plan is to put her on Ciprodex ophthalmic drops. Strict return precautions given. 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 You have been given antibiotic eyedrops and you should put 2 drops in your eye 4 times a day. Please follow-up with Dr. Orta tomorrow at 1345. Also you can do hot compresses with a wet wash rag over the eye several times a day if you see purulent discharge. If you have complete vision loss, eye entrapment or you cannot move your eye, the swelling gets significantly worse, or you have any other concerning symptoms please immediately return to the emergency department. Referrals: SAIMA MAYO MD [Primary Care Provider] - Follow up as needed BRYON ORTA MD [ACTIVE STAFF] - 03/24/19 1:45 pm
== END 2019-03-23 14:11 | disposition home or self-care (01) ==
LOC: ER 12:21
DX: H44.001 Unspecified purulent endophthalmitis, right eye (principal); H57.12 Ocular pain, left eye; H40.9 Unspecified glaucoma; H53.149 Visual discomfort, unspecified; I50.9 Heart failure, unspecified; I11.0 Hypertensive heart disease with heart failure
CPT/HCPCS: 99282; J3490